=== PATIENT | female | born 1950 | race Caucasian/White ===

== ENCOUNTER 2018-12-15 01:26 | Inpatient (IN) ==
[2018-12-15] MEDS ORDERED: ATROVENT NEB INH ONE (01:39)
[2018-12-15] MEDS ORDERED: SOLU-MEDROL IV ONE (01:39)
--- NOTE | 2018-12-15 01:53 | PROVIDER DOCUMENTATION ---
This chart was entered by Valerie Lee Scribe, acting as scribe for Mayito Adam MD. HPI-Respiratory General - General Chief Complaint: Shortness of Breath Stated Complaint: sob Time Seen by Provider: 12/15/18 01:39 Source: EMS Allergies/Adverse Reactions: Patient Allergies Allergy/AdvReac Type Severity Reaction Status Date / Time azithromycin Allergy RASH Verified 12/15/18 06:18 hydromorphone HCl * Allergy HIVES Verified 12/15/18 06:18 [From Dilaudid] levofloxacin [From Levaquin] Allergy HIVES Verified 12/15/18 06:18 Home Medications: Home Medication List Medication Instructions Recorded Confirmed Last Taken Type Hydrocodone/Acetaminophen [[place] 1 tab PO Q6-8H PRN PRN 09/18/15 12/15/18 12/14/18 History 10-325 Tablet] Levothyroxine [Synthroid] 200 microgm PO DAILY 09/18/15 12/15/18 12/14/18 History Albuterol Sulfate [Ventolin] 2 puff INH Q4H PRN PRN 01/27/18 12/15/18 12/15/18 00:00 History Famotidine 40 mg PO BID 01/27/18 12/15/18 12/14/18 History Insulin Glargine,Hum.rec.anlog 0 unit SQ DIRECTED 01/27/18 12/15/18 12/14/18 History [Toujeo Solostar] Lorazepam 0.5 mg PO 4XDAY PRN 01/27/18 12/15/18 12/14/18 History Pramipexole Di-HCl [Pramipexole 0.5 mg PO TID 01/27/18 12/15/18 12/13/18 History Dihydrochloride] Aspirin 81 mg PO DAILY chewtab 01/30/18 12/15/18 12/14/18 Rx Promethazine [Phenergan] 25 mg PO Q8HR PRN #12 tab 05/28/18 12/15/18 12/13/18 Rx Buspirone [Buspar] 10 mg PO BID 12/15/18 12/15/18 12/14/18 History - History of Present Illness-Resp Nature of Presenting Problem: 68 yowf with history of chronic rectal bleeding and lower abdominal pain for past 3 weeks, and severe COPD requiring continuous home oxygen who presents by ems with worsening sob. EMS gave albuterol updraft in route with improvement. pt has no cp, cough, or fever. pt reports son just of colon cancer and wants to be admitted and have total abd workup . Quality of Pain: reports: none Severity in ED: reports: mild Onset/Duration: reports: 3 days ago Timing: reports: still present Review of Systems - Adult - REVIEW OF SYSTEMS - ADULT Constitutional: reports: no symptoms reported. denies: chills, fever Eyes: reports: no symptoms reported Ears, Nose, Mouth & Throat: reports: no symptoms reported Cardiovascular: reports: no symptoms reported. denies: chest pain Respiratory: reports: see HPI, shortness of breath. denies: cough, dyspnea on exertion, wheezing Gastrointestinal: reports: see HPI, abdominal pain (suprapubic pain), rectal bleeding (3 weeks). denies: diarrhea, nausea, vomiting Genitourinary: reports: no symptoms reported Musculoskeletal: reports: no symptoms reported Integumentary: reports: no symptoms reported Neurological: reports: no symptoms reported Psychiatric: reports: no symptoms reported Endocrine: reports: no symptoms reported Hematologic/Lymphatic: reports: no symptoms reported Allergic/Immunologic: reports: no symptoms reported All Other Systems: Reviewed and Negative Past History - Adult - PAST MEDICAL HISTORY-ADULT Review of Records: reports: Old Records Reviewed, Nursing Assessment Review, Medications Reviewed, Social history reviewed & non-contributory. Major Childhood Illnesses: reports: denies history Cardiovascular: reports: CHF, HTN Respiratory: reports: asthma, COPD, other (emphysema) Gastrointestinal: reports: cholelithiasis Obstetrical/Gynecological: reports: ovarian cysts Genitourinary: reports: denies history Musculoskeletal: reports: denies history Neurological: reports: CVA Psychiatric: reports: anxiety Endocrine/Immune: reports: Diabetes, thyroid disorder (hypo) Other Conditions: reports: other (gall stones) - PRIOR SURGERIES/PROCEDURES Surgical/Procedure History: reports: appendectomy, BTL, orthopedic (extremity) (heel spur) - IMMUNIZATION STATUS Childhood Immunizations: See Nurse Assessment Flu Vaccine: See Nurse Assessment - FAMILY HISTORY Family History: reviewed, not pertinent - SOCIAL HISTORY Smoking: other (former) Substance Use: none/never Physical Exam-General - PHYSICAL EXAM-ADULT Initial Vital Signs Reviewed: Yes - CONSTITUTIONAL General Appearance: appears well, alert, no apparent distress, obese. negative: thin, anxious, lethargic, slow to respond - EYES Eyes: PERRL/EOMI - HEAD, EARS, NOSE, MOUTH & THROAT HENMT: normocephalic/atraumatic, moist mucous membranes, normal ENT inspection - NECK Neck: non-tender, full range of motion, supple, normal inspection - RESPIRATORY Respiratory: chest non-tender, decreased breath sounds (bilat), wheezing (scattered). negative: lungs clear, normal breath sounds, crackles, rales, rhonchi, stridor - CARDIOVASCULAR Cardiovascular: normal peripheral pulses, regular rate, rhythm - GASTROINTESTINAL (ABDOMEN) Abdominal Exam: normal bowel sounds, non tender, soft, tenderness (lower abd tenderness), other (no active bleeding). negative: abnormal bowel sounds, guarding, rigid, rebound - LYMPHATIC Lymphatic: no adenopathy - MUSCULOSKELETAL Back Exam: normal inspection, no CVA tenderness, no vertebral tenderness Extremity: normal range of motion, non-tender, normal inspection Peripheral Pulses: radial (R): 2+, radial (L): 2+ - SKIN Integumentary: normal color, normal turgor, warm/dry - NEUROLOGIC Neurologic: drive in teller II-XII nml as tested, grossly normal, no motor/sensory deficits - PSYCHIATRIC Psych/Mental Status: normal mood/affect, normal thought content, normal thought process, oriented x 3 Progress - PLAN OF CARE/RESULTS Progress/Plan/Lab Results: Vital Signs - 8 hr 12/15/18 01:44 12/15/18 01:45 12/15/18 01:51 Temperature Pulse Rate 88 Respiratory Rate 16 Blood Pressure 121/100 O2 Sat by Pulse Oximetry 95 95 95 12/15/18 02:00 12/15/18 02:02 12/15/18 02:10 Temperature 98.6 F Pulse Rate 105 H Respiratory Rate 20 Blood Pressure 121/100 118/54 O2 Sat by Pulse Oximetry 95 94 L 95 12/15/18 02:21 12/15/18 02:30 12/15/18 02:32 Temperature Pulse Rate Respiratory Rate Blood Pressure 147/78 O2 Sat by Pulse Oximetry 93 L 95 95 12/15/18 02:40 12/15/18 02:53 12/15/18 03:00 Temperature Pulse Rate Respiratory Rate Blood Pressure O2 Sat by Pulse Oximetry 98 95 96 12/15/18 03:10 12/15/18 03:20 12/15/18 04:48 Temperature 97.8 F Pulse Rate 96 H Respiratory Rate 22 Blood Pressure 144/78 O2 Sat by Pulse Oximetry 96 95 92 L Laboratory Results - last 24 hr 12/15/18 12/15/18 12/15/18 02:40 03:00 03:00 WBC 10.65 RBC 4.32 Hgb 12.6 Hct 41.7 MCV 96.5 MCH 29.2 MCHC 30.2 L RDW Std Deviation 13.4 Plt Count 372 MPV 9.9 Immature Gran % (Auto) 0.3 Neut % (Auto) 70.9 Lymph % (Auto) 19.3 L Smith % (Auto) 7.8 Eos % (Auto) 1.6 Baso % (Auto) 0.1 Immature Gran # (Auto) 0.03 Neut # (Auto) 7.55 H Lymph # (Auto) 2.06 Smith # (Auto) 0.83 H Eos # (Auto) 0.17 Baso # (Auto) 0.01 PT INR PTT (Actin FS) Specimen Type ARTERIAL Sample Site R RADIAL pH 7.39 pCO2 62 H* pO2 79 HCO3 32.8 H Base Excess 10.2 H Oxyhemoglobin 95.1 ABG O2 Sat (Calculated) 17.2 ABG O2 Saturation 97.9 ABG Carboxyhemoglobin 1.90 ABG Methemoglobin 0.9 Abdulaziz Test YES A-a O2 Difference 72.0 Total Hemoglobin 12.8 Lactate 1.00 Liter Flow 3.0 Blood Gas Modality CANNULA FiO2 % 32.0 Sodium 140 Potassium 4.1 Chloride 95 L Carbon Dioxide 34 Anion Gap 11 BUN 17 Creatinine 0.7 Estimated GFR/1.73 m2 > 60 BUN/Creatinine Ratio 24 Glucose 354 H Calculated Osmolality 295 Calcium 9.3 Total Bilirubin < 0.15 L AST 13 ALT 25 Alkaline Phosphatase 146 H Troponin T Hdz-L-Wftyqyofmei Pept Total Protein 7.2 Albumin 3.9 Globulin 3.3 Albumin/Globulin Ratio 1.2 Lipase Plasma Lactate Urine Source Urine Color Urine Turbidity Urine pH Ur Specific [place] Urine Protein Ur Glucose (Stick) Ur Ketones (Stick) Urine Blood Urine Nitrite Urine Bilirubin Urobilinogen Dipstick Urine Leukocytes Urine WBC (Auto) Urine RBC (Auto) U Epithel Cells (Auto) Urine Bacteria (Auto) 12/15/18 12/15/1819 03:00 03:00 03:00 WBC RBC Hgb Hct MCV MCH MCHC RDW Std Deviation Plt Count MPV Immature Gran % (Auto) Neut % (Auto) Lymph % (Auto) Smith % (Auto) Eos % (Auto) Baso % (Auto) Immature Gran # (Auto) Neut # (Auto) Lymph # (Auto) Smith # (Auto) Eos # (Auto) Baso # (Auto) PT INR PTT (Actin FS) Specimen Type Sample Site pH pCO2 pO2 HCO3 Base Excess Oxyhemoglobin ABG O2 Sat (Calculated) ABG O2 Saturation ABG Carboxyhemoglobin ABG Methemoglobin Abdulaziz Test A-a O2 Difference Total Hemoglobin Lactate Liter Flow Blood Gas Modality FiO2 % Sodium Potassium Chloride Carbon Dioxide Anion Gap BUN Creatinine Estimated GFR/1.73 m2 BUN/Creatinine Ratio Glucose Calculated Osmolality Calcium Total Bilirubin AST ALT Alkaline Phosphatase Troponin T < 0.010 Bom-S-Epanjcaxsdu Pept 42 Total Protein Albumin Globulin Albumin/Globulin Ratio Lipase Plasma Lactate 1.2 Urine Source Urine Color Urine Turbidity Urine pH Ur Specific [place] Urine Protein Ur Glucose (Stick) Ur Ketones (Stick) Urine Blood Urine Nitrite Urine Bilirubin Urobilinogen Dipstick Urine Leukocytes Urine WBC (Auto) Urine RBC (Auto) U Epithel Cells (Auto) Urine Bacteria (Auto) 12/15/18 12/15/18 12/15/18 03:00 03:00 04:35 WBC RBC Hgb Hct MCV MCH MCHC RDW Std Deviation Plt Count MPV Immature Gran % (Auto) Neut % (Auto) Lymph % (Auto) Smith % (Auto) Eos % (Auto) Baso % (Auto) Immature Gran # (Auto) Neut # (Auto) Lymph # (Auto) Smith # (Auto) Eos # (Auto) Baso # (Auto) PT 12.6 INR 0.88 PTT (Actin FS) 24.1 Specimen Type Sample Site pH pCO2 pO2 HCO3 Base Excess Oxyhemoglobin ABG O2 Sat (Calculated) ABG O2 Saturation ABG Carboxyhemoglobin ABG Methemoglobin Abdulaziz Test A-a O2 Difference Total Hemoglobin Lactate Liter Flow Blood Gas Modality FiO2 % Sodium Potassium Chloride Carbon Dioxide Anion Gap BUN Creatinine Estimated GFR/1.73 m2 BUN/Creatinine Ratio Glucose Calculated Osmolality Calcium Total Bilirubin AST ALT Alkaline Phosphatase Troponin T Nmy-A-Rjmeakafwdb Pept Total Protein Albumin Globulin Albumin/Globulin Ratio Lipase 68 H Plasma Lactate Urine Source CLEAN CATCH Urine Color YELLOW Urine Turbidity CLEAR Urine pH 7.0 Ur Specific [place] 1.023 Urine Protein TRACE A Ur Glucose (Stick) >1000 A Ur Ketones (Stick) NEGATIVE Urine Blood NEGATIVE Urine Nitrite NEGATIVE Urine Bilirubin NEGATIVE Urobilinogen Dipstick NORMAL Urine Leukocytes NEGATIVE Urine WBC (Auto) <10 Urine RBC (Auto) <10 U Epithel Cells (Auto) <10 Urine Bacteria (Auto) NEGATIVE Orders Category Date Time Status Saline Loc NOW Care 12/15/18 01:39 Active CHEST-PORTABLE [RAD] Stat Exams 12/15/18 01:[address] ABD/PELVIS W/IV CONT ONLY [CT] Stat Exams 12/15/18 04:38 Taken ABG [RESP] Routine Lab 12/15/18 02:40 Completed BLOOD CULTURE [BLDCUL] Stat Lab 12/15/18 03:10 Results CBC WITH DIFF [HEME] Stat Lab 12/15/18 03:00 Completed COMPREHENSIVE METABOLIC PANEL [CHEM] Stat Lab 12/15/18 03:00 Completed LACTATE, PLASMA [CHEM] Stat Lab 12/15/18 03:00 Completed LIPASE [CHEM] Stat Lab 12/15/18 03:00 Completed PRO B-NATRIURETIC PEPTIDE Stat Lab 12/15/18 03:00 Completed PT [PROTIME WITH INR] [COAG] Stat Lab 12/15/18 03:00 Completed PTT [COAG] Stat Lab 12/15/18 03:00 Completed TROPONIN T Stat Lab 12/15/18 03:00 Completed URINALYSIS W/POSS RFLX CULT [URINALYSIS] Stat Lab 12/15/18 04:35 Completed Ipratropium [place] Neb [Atrovent Neb] Med 12/15/18 01:39 Discontinued 0.5 mg INH NOW ONE Methylprednisolone Sod Succ [Solu-Medrol] Med 12/15/18 01:39 Discontinued 125 mg IV NOW ONE Ondansetron [Zofran] Med 12/15/18 04:38 Discontinued 4 mg IV NOW ONE Aerosol Treatments Routine Oth 12/15/18 01:40 Active Aerosol Treatments Stat Oth 12/15/18 01:40 Active Oxygen Device Stat Oth 12/15/18 01:41 Active Pulse Oximetry Stat Oth 12/15/18 01:39 Active Result Diagrams: 12/15/18 03:00 12/15/18 03:00 - REASSESSMENT Reassessment #1 Time Reassessed: 05:45 Status: unchanged Reassessment Comment: continues to wheeze Reassessment #2 Time Reassessed: 06:30 Status: unchanged Reassessment Comment: continues to wheeze - CONSULTS/PCP/HOSPITALIST Notification #1 *Consult/PCP/Hospitalist*: Dr. Swartz, hospitalist Time Discussed: 06:35 Consult Disposition: Admit Departure - Departure Date of Disposition Decision: 12/15/18 Time of Disposition Decision: 06:38 DIAGNOSIS: COPD exacerbation, Rectal bleeding Abdominal pain Qualifiers: Abdominal location: lower abdomen, unspecified Qualified Code(s): R10.30 - Lower abdominal pain, unspecified Disposition: ADMITTED INPATIENT 09 Certified Medical Emergency: Emergent Condition: Stable Referrals and Follow-Ups: Kane Pierre MD [Primary Care Provider] - - Critical Care Note This patient required my direct & personal management of CC.: No Attestation - Physician/ MARGA Attestation Patient care was provided by Advanced Practice Provider:: No The physician spent face to face time with patient:: Yes Advanced Practice Provider documentation review:: Supervising physician onsite and consulted in the evaluation and care of this patient. The physician did have a face to face encounter with the patient. This chart was documented by the indicated scribe, (Valerie Lee, Pham) and accurately reflects the services I performed and decisions made by me, Mayito Adam MD, as attested by the provider's signature.
[2018-12-15 02:58] LABS: ALLEN TEST YES; BE 10.2 mmoll (-3.0-3.0); BLOOD TYPE ARTERIAL; HCO3-(ACT) 32.8 mmoll (20.0-26.0); METHB 0.9 % (0.0-1.5); O2(CT) 17.2 mL/dL (15.0-23.0); O2HB 95.1 % (95.0-99.0); PO2(98.6) 79 mmHg (60-100); SAMPLE BLOOD; SAO2 97.9 % (95.0-100.0); THB 12.8 g/dL (11.5-17.4); pH(98.6) 7.39 (7.35-7.45)
[2018-12-15 02:59] LABS: MODALITY CANNULA
[2018-12-15 03:00] LABS: PCO2(98.6) 62 mmHg (35-45)
[2018-12-15 03:44] LABS: BASO# 0.01 X1000 (0.0-0.2); BASO% 0.1 % (0.0-0.8); EOS# 0.17 X1000 (0.0-0.7); EOS% 1.6 % (0.0-10.0); HEMATOCRIT 41.7 % (37.0-47.0); HEMOGLOBIN 12.6 g/dL (12.0-16.0); IMM GRAN# 0.03 X1000 (0.0-0.04); IMM GRAN% 0.3 % (0.0-0.5); LYMPH# 2.06 X1000 (1.2-3.4); LYMPH% 19.3 % (20.5-51.1); MCH 29.2 PG (27-31); MCHC 30.2 g/dL (33-37); MCV 96.5 FL (81-99); MONO# 0.83 X1000 (0.11-0.59); MONO% 7.8 % (1.7-9.3); MPV 9.9 FL (7.4-10.4); NEUT# 7.55 X1000 (1.4-6.5); NEUT% 70.9 % (42.2-75.2); PLT 372 X1000 (130-400); RBC 4.32 XMIL (4.2-5.4); RDW 13.4 % (11.5-14.5); WBC 10.65 X1000 (4.8-10.8)
[2018-12-15 03:53] LABS: INR 0.88; PROTIME 12.6 Seconds (11.0-16.0); PTT 24.1 Seconds (22.3-41.8)
[2018-12-15 04:30] LABS: AGAP 11; ALB/GLOB RATIO 1.2; ALBUMIN 3.9 g/dL (3.5-5.0); ALKALINE PHOSPHATASE 146 U/L (32-104); BUN 17 mg/dL (8-22); CALCIUM 9.3 mg/dL (8.8-10.2); CHLORIDE 95 mmol/L (98-107); COSMO 295; CREATININE 0.7 mg/dL (0.5-0.9); ESTIMATED GFR > 60; GLUCOSE 354 mg/dL (70-104); GOT 13 U/L (10-30); GPT 25 U/L (10-36); POTASSIUM 4.1 mmol/L (3.5-5.1); SODIUM 140 mmol/L (136-145); TCO2 34 mmol/L (25-35); TOTAL BILIRUBIN < 0.15 mg/dL (0.20-1.00); TOTAL PROTEIN 7.2 g/dL (6.3-8.3)
[2018-12-15] MEDS ORDERED: ZOFRAN IV ONE (04:38)
[2018-12-15 04:50] LABS: URINE SOURCE CLEAN CATCH
[2018-12-15 04:54] LABS: BILIRUBIN URINE NEGATIVE (NEGATIVE); BLOOD URINE NEGATIVE (NEGATIVE); COLOR YELLOW; GLUCOSE URINE >1000 mg/dL (NEGATIVE); KETONE URINE NEGATIVE (NEGATIVE); LEUKOCYTES URINE NEGATIVE (NEGATIVE); NITRITE URINE NEGATIVE (NEGATIVE); PROTEIN URINE TRACE mg/dL (NEGATIVE); SP GRAVITY URINE 1.023; TURBIDITY URINE CLEAR (CLEAR); UROBILINOGEN URINE NORMAL (NORMAL)
[2018-12-15 04:55] LABS: UR EPITHELIAL CELLS <10 /HPF (<10); URINE BACTERIA NEGATIVE /HPF; URINE RBC <10 /HPF (<10); URINE WBC <10 /HPF (<10)
--- NOTE | 2018-12-15 07:41 | Diag Imaging Result Doc PS360 ---
EXAM: CHEST-PORTABLE 12/15/2018 HISTORY: sob TECHNIQUE: AP portable at 0203 COMMENT: There is a platelike opacity in the lingula which was not present on 01/27/2018. There is a smaller platelike opacity in the right costophrenic angle region. IMPRESSION: Bilateral platelike atelectasis. Electronically signed by Ross Thomas 12/15/2018 7:39 AM
[2018-12-15] MEDS ORDERED: KLONOPIN PO PRN (07:42)
[2018-12-15] MEDS ORDERED: DUONEB (A & A) INH PRN (07:42)
--- NOTE | 2018-12-15 08:22 | HISTORY AND PHYSICAL ---
CHIEF COMPLAINT: Shortness of breath and then just lower abdominal cramping. She is an obese COPD patient who is here for abdominal pain in her lower quadrants. She has got a history of I think diverticulitis, may be pancreatitis. She reports these things, but she has a very large pannus with swelling in her pannus, but not sure how much she has available there. Reportedly, she has also cholelithiasis but her main issue is her low oxygen, which has progressed a bit. She is usually on 2 to 3 L. She is on 4 L now with shortness of breath. Workup in the ER consistent with COPD exacerbation, possibly left lower lobe pneumonia, or left pleural effusion, but in any case, patient is stable and does not look like she has got an effusion or pneumonia per se, at least at the base of the lungs. In any case, patient is stable and admitted for COPD exacerbation. She also reports rectal bleeding, hematochezia. She does have a history of hemorrhoids and lower abdominal cramping. She is diabetic as well. PAST MEDICAL HISTORY: 1. COPD. 2. Morbid obesity. 3. Type 2 diabetes insulin dependent. 4. Hypothyroidism. 5. Chronic anxiety. PAST SURGICAL HISTORY: She had appendectomy, tubal ligation, heel spur surgery. She has got cholelithiasis but is not amenable to surgery because of her weight and her COPD. SOCIAL HISTORY: She does not smoke currently. She at least has a 25 pack year history of smoking. No alcohol. ALLERGIES: To azithromycin, hydromorphone, and Levaquin. FAMILY HISTORY: Son had colorectal cancer and is . REVIEW OF SYSTEMS: No weight gain. Cardiovascular: No chest pain. Pulmonary: As described. Gastrointestinal: As described. Genitourinary: No dysuria. Neurological: She describes burning peripheral neuropathy in hands and feet. PHYSICAL EXAMINATION: VITAL SIGNS: Blood pressure is 144/78, heart rate of 96, respiratory rate of 22, temperature 97.8 degrees, 92% on 4 L. GENERAL: An obese female in no acute distress. HEENT: Head exam was normocephalic atraumatic. Eye exam: Pupils equal, round, reactive to light. Extraocular movements were intact. Ears, nose, and throat exam: She had moist mucous membranes. NECK: Exam was supple. CARDIOVASCULAR: Regular rate and rhythm. PULMONARY: Bilateral breath sounds. Clear to auscultation. She does not have significant wheezing, no interstitial edema. GASTROINTESTINAL: Soft, nontender, nondistended. Bowel sounds are positive. She does have enlarged, edematous pannus at the bottom. I did not appreciate any cellulitic changes. EXTREMITIES: No clubbing or cyanosis. LYMPHATIC: No peripheral edema. NEUROLOGICAL: Exam was nonfocal. Cranial nerves 2-12. EXTREMITIES: She does have 1 to 2+ pitting edema. MUSCULOSKELETAL: Exam was 4 to 5 in all 4 extremities. LABORATORY DATA: White count 10, hemoglobin and hematocrit 12 and 41, platelets 372,000. INR 0.88. PH 7.39, pCO2 62, PaO2 79. Blood sugar 354. PROBLEM LIST: 1. Chronic obstructive pulmonary disease exacerbation, acute COPD exacerbation. We will continue oxygen. Follow up on chest x-ray. Her CT does not show anything in the lower lobes but we will cover her with Rocephin and follow closely. Continue breathing treatments, steroids. 2. Rectal bleeding. Unclear at this time, this sounds like a chronic issue, but we will get a GI input, Hemoccult her stools. It could be something as simple as hemorrhoid issues. 3. Acute hypoxic respiratory failure. She persists in having low CO2. I am going to move her to the step-down just for closer observation and we will get a Pulmonary opinion. 4. Type 2 diabetes. We will continue to get her medications. It is unclear how much insulin she actually takes and says up to 300 units, which seems like a very large amount, but we will continue to follow closely. Check A1c. Continue sliding scale and follow closely. cc: MD Kane Dawson MD
[2018-12-15] MEDS: DUONEB (A & A) INH SCH ×5 (08:54→23:10)
--- NOTE | 2018-12-15 09:06 | Diag Imaging Result Doc PS360 ---
EXAM: CT ABD/PELVIS W/IV CONT ONLY 12/15/2018 HISTORY: abdominal pain TECHNIQUE: This exam was performed using automated exposure control, adjustment of mA or kV according to patient size, and/or use of iterative reconstruction technique. COMMENT: The current examination is compared with the previous study of 01/27/2018. There is atelectasis present in the lingula which is worse than on the previous study. There are also linear opacities in the right lower lobe and medial right middle lobe consistent with atelectasis. There is no evidence of abdominal aortic aneurysm. The mesenteric and renal arteries appear to be patent. The spleen is not enlarged. There is enlargement of the left adrenal gland which compared to the previous examination has not changed significantly. The pancreas is unremarkable in appearance. There are no apparent gallstones in the liver is stable in appearance. There is some stool throughout the colon. The small bowel is not distended. There is no evidence of significant adenopathy. Pelvis: The appendix is surgically absent. There is no evidence of significant free fluid in the pelvis. There is a fat-containing umbilical hernia. The urinary bladder is not distended. There is no evidence of mass or significant adenopathy. There is vacuum joint phenomenon in both sacroiliac joints as well as vacuum phenomenon and several of the disc spaces and facet joints in the lumbar spine. There is no evidence of acute bony abnormality. IMPRESSION: Bibasilar atelectasis. Mild constipation. Left adrenal adenoma. Electronically signed by Ross Thomas 12/15/2018 9:04 AM
[2018-12-15 10:08] LABS: BASO# 0.01 X1000 (0.0-0.2); BASO% 0.1 % (0.0-0.8); EOS# 0.01 X1000 (0.0-0.7); EOS% 0.1 % (0.0-10.0); HEMATOCRIT 42.9 % (37.0-47.0); IMM GRAN# 0.02 X1000 (0.0-0.04); IMM GRAN% 0.2 % (0.0-0.5); LYMPH# 0.94 X1000 (1.2-3.4); LYMPH% 7.7 % (20.5-51.1); MCH 29.2 PG (27-31); MCHC 30.3 g/dL (33-37); MCV 96.4 FL (81-99); MONO# 0.06 X1000 (0.11-0.59); MONO% 0.5 % (1.7-9.3); MPV 10.1 FL (7.4-10.4); NEUT# 11.17 X1000 (1.4-6.5); NEUT% 91.4 % (42.2-75.2); PLT 366 X1000 (130-400); RBC 4.45 XMIL (4.2-5.4); RDW 13.5 % (11.5-14.5); WBC 12.21 X1000 (4.8-10.8)
[2018-12-15 10:23] LABS: LYMPHS 3 % (21-51); MONO 2 % (1-9); SEGS 95 % (42-75); STOMATOCYTES 1+
[2018-12-15] MEDS: MIRAPEX PO SCH ×3 (10:34→18:25)
[2018-12-15] MEDS: ROCEPHIN 1 GM in NS 50 ML IV SCH (10:34)
[2018-12-15] MEDS: BUSPAR PO SCH ×2 (10:35→22:19)
[2018-12-15] MEDS: SOLU-MEDROL IV SCH ×2 (10:35→18:25)
[2018-12-15] MEDS: PROTONIX IV SCH ×2 (10:36→22:19)
[2018-12-15] MEDS: SYNTHROID PO SCH (10:36)
[2018-12-15 10:39] LABS: AGAP 13; ALB/GLOB RATIO 1.1; ALBUMIN 3.9 g/dL (3.5-5.0); ALKALINE PHOSPHATASE 158 U/L (32-104); BUN 17 mg/dL (8-22); CHLORIDE 91 mmol/L (98-107); COSMO 300; CREATININE 0.6 mg/dL (0.5-0.9); ESTIMATED GFR > 60; GOT 15 U/L (10-30); GPT 27 U/L (10-36); POTASSIUM 5.2 mmol/L (3.5-5.1); SODIUM 133 mmol/L (136-145); TCO2 29 mmol/L (25-35); TOTAL BILIRUBIN 0.17 mg/dL (0.20-1.00); TOTAL PROTEIN 7.4 g/dL (6.3-8.3)
[2018-12-15 10:46] LABS: GLUCOSE 698 mg/dL (70-104)
[2018-12-15] MEDS ORDERED: HUMULIN R SUBQ SCH (11:00)
[2018-12-15] MEDS ORDERED: LEVEMIR SUBQ ONE (11:02)
[2018-12-15] MEDS: ATIVAN PO PRN (14:59)
[2018-12-15] MEDS: MIRALAX PO SCH ×2 (14:59→22:19)
[2018-12-15] MEDS: NORCO-10 PO PRN ×2 (14:59→22:27)
[2018-12-15] MEDS: HUMULIN R SUBQ SCH ×2 (18:25→22:20)
--- NOTE | 2018-12-15 21:55 | GASTROENTEROLOGY CONSULTATION ---
DATE: 12/15/2018 ATTENDING PHYSICIAN: Dr. Swartz. PRIMARY CARE DOCTOR: Dr. Pierre. REASON FOR CONSULTATION: Rectal bleeding. HISTORY OF PRESENT ILLNESS: Ms. Wolff is a 68-year-old female who was admitted on 12/15/2018 for shortness of breath, lower abdominal cramping, and intermittent rectal bleeding for the last 3 weeks. The patient recently buried her son, who of colon cancer in his mid 40s. She has a history of chronic smoking. She quit 5 years ago. She has been on home oxygen about 2-3 L/minute. She was admitted for COPD exacerbation and left lower lobe pneumonia. She also complained of lower abdominal cramping, constipation, and rectal bleeding. She has never had a colonoscopy done in the past. She has seen Dr. Burr in [place] for possible EGD and colonoscopy, but because of the high risk of the procedure, they have deferred it until now. The patient denies any vomiting blood. She denies any history of previous ulcers. She denies any previous history of hemorrhoids. Since admission, the patient has not had a bowel movement. She does have a history of intermittent constipation. PAST MEDICAL HISTORY: COPD on home oxygen, morbid obesity, type 2 diabetes, insulin dependent, hypothyroidism, chronic anxiety, and obesity. PAST SURGICAL HISTORY: Appendectomy, tubal ligation, heel spur surgery, cholelithiasis. SOCIAL HISTORY: She quit smoking 5 years ago. She has more than a [id number] history of smoking. No history of alcohol or illicit drug abuse. ALLERGIES: Azithromycin, hydromorphone Levaquin. FAMILY HISTORY: Son had colon cancer and from colon cancer at age 45. REVIEW OF SYSTEMS: Denies any fevers, rigors, or chills. Denies any chest pain. Does have some shortness which has worsened. She denies any vomiting blood or coffee grounds. She does complain of rectal bleeding for the last 3 weeks. She also complains of constipation. She does complain of abdominal pain in the lower abdomen which she attributes to constipation. She does have a history of arthritis. Denies any neurologic complaints. She is currently on a heart healthy diet. MEDICATIONS IN THE HOSPITAL: Levemir, hydrocortisone suppository at bedtime, albuterol/ipratropium, BuSpar, Klonopin, hydrocodone/acetaminophen, insulin sliding scale, Synthroid, Ativan, Solu-Medrol 60 mg IV every 8 hours, Protonix 40 mg IV b.i.d., MiraLAX 17 grams p.o. b.i.d., pramipexole 0.5 mg p.o. t.i.d., ceftriaxone 1 gram IV once daily. PHYSICAL EXAMINATION: Vital Signs: Temperature of 98.2 degrees, pulse rate 113, respiratory rate 16, blood pressure 157/86, saturating 95% on nasal cannula at 3 L/minutes. Body weight of 317 pounds, BMI 52.8 kg/m2. General: Morbidly obese. Sitting in bed, in no acute distress. HEENT: No pallor. No icterus. Nasal cannula in place. Neck: Supple. Abdomen: Morbidly obese. Soft, nontender. No guarding or rebound. Extremities: Bilateral mild lower extremity edema noted. Neurologic: She is awake, alert, oriented. LABS: Hemoglobin and hematocrit are 13 and 42.9, white count of 12.1, platelet count of 360, MCV 96.4, INR 0.88, PT 12.6, PT 24.1. ABG showing pH of 7.39, pCO2 of 62, PO2 of 79. This is on a on FiO2 at 30%. Sodium 133, potassium 5.2, chloride 91, bicarb 29, AG 13, BUN 17, creatinine 0.6, glucose of 698. Calcium is 9. Total bilirubin is 0.17, AST 15, ALT 27, alkaline phosphatase 158. Total protein is 7.4, albumin 3.9, lipase 68. Lactate is 1.2. Urinalysis shows trace protein, positive glucose. Blood cultures x2 were drawn. They are currently pending. CT of the abdomen and pelvis was done today which showed enlargement of the left adrenal gland, which compared to the previous study has not changed significantly. The pancreas is unremarkable in appearance. No apparent gallstones. The liver is stable in appearance. There is some stool throughout the colon. The appendix is surgically absent. Fat-containing umbilical hernia. Bibasilar atelectasis and left adrenal adenoma. IMPRESSION AND PLAN: 1. Rectal bleeding. This could be secondary to straining which could have caused hemorrhoids or anal fissure. Will start her on MiraLAX twice daily. Will also use hydrocortisone suppository at bedtime and evaluate response. 2. Chronic obstructive pulmonary disease on home oxygen and currently in chronic obstructive pulmonary disease exacerbation. She will continue on treatment with albuterol/ipratropium nebulizer. 3. Chronic arthritis. She is on hydrocodone/acetaminophen. 4. Uncontrolled diabetes. This needs to be managed per the primary care team. She is on insulin. 5. Gastrointestinal prophylaxis with proton pump inhibitors. 6. Left adrenal adenoma. Aware. 7. I discussed the options of doing colonoscopy with the patient. The risks, benefits, indications, and alternatives were discussed with the patient, and all questions were answered. The patient is going to think about it and let us know. The patient is a higher-risk candidate for any kind of procedure including colonoscopy because of underlying chronic obstructive pulmonary disease, other medical comorbidities. The above plan was discussed with the patient and all questions answered. Please call us with questions. cc: MD Kane Jaquez MD Manish Arora, MD [facility]
[2018-12-15] MEDS: LEVEMIR SUBQ SCH (22:19)
[2018-12-15] MEDS: SODIUM CHLORIDE 0.9% INJ SCH (22:19)
[2018-12-15] MEDS: ANUSOL-HC SUPP PR SCH (22:20)
[2018-12-15] MEDS ORDERED: INSULIN PEN NEEDLES ONE (22:22)
--- NOTE | 2018-12-16 00:04 | CONSULTATION ---
DATE OF CONSULTATION: 12/15/2018 CONSULTING PHYSICIAN: Dr. Anne Gutiérrez. REQUESTING PROVIDER: Dr. Zachariah Swartz. REASON FOR CONSULTATION: Respiratory failure. HISTORY OF PRESENT ILLNESS: This is a 68-year-old female with a medical history of COPD, morbid obesity with obstructive sleep apnea, history of heavy tobacco use, congestive heart failure, hypothyroidism, anxiety, depression, hypertension, diabetes mellitus type 2, cholelithiasis, and Meniere's disease. She presented to the ER early this morning with shortness of breath and lower abdominal cramping. Initial work up in the ER revealed COPD exacerbation, possible left lower lobe pneumonia or left pleural effusion. She has been admitted to the medical floor for further evaluation and management. At the time of my examination, patient is sitting at the bedside with no acute distress noted. She is currently on nasal cannula at 3 L. She reports worsening shortness of breath with ongoing rectal bleeding and bilateral lower extremity pitting edema with left side worse than right side for about 3 weeks. She reports she gained 10 pounds in 3 weeks. She also reports lower abdominal pain and she has been passing blot clots in last couple days. She has no chest pain, cough, fever, or palpitations. PAST MEDICAL AND SURGICAL HISTORY: 1. Chronic obstructive pulmonary disease, on continuous oxygen 3 to 3.5 L/min at home for about 6 years. She takes Breo and albuterol at home. 2. Morbid obesity with obstructive sleep apnea; current BMI 52.8 3. History of heavy tobacco use. Over [id number] smoking history. 4. Congestive heart failure 5. Hypothyroidism. 6. Anxiety. 7. Depression. 8. Hypertension. 9. Diabetes mellitus type 2, uncontrolled 10. Cholelithiasis, which she has been told that was not surgically amenable because of her weight and COPD. 11. Meniere's disease. 12. Appendectomy. 13. Hemorrhoidectomy. 14. Back surgery in 1994. 15. Left ovary cyst removal in 1981. SOCIAL HISTORY: She was a former smoker, she quit smoking 5 years ago. She used to smoke maximally up to 5 pack per day, but most of times stayed at 3 pack per day since she was 28-year- old. She has no history of alcohol or illicit drug use. FAMILY HISTORY: Patient's son had colorectal cancer and 4 years ago. Father had Alzheimer's disease. Mother had heart disease. ALLERGIES: Azithromycin, hydromorphone, levofloxacin. REVIEW OF SYSTEMS: A 10-point review of systems was conducted and the pertinent was listed within the HPI, otherwise noncontributory. PHYSICAL EXAMINATION: Vital Signs: Temperature 97.8 degrees, blood pressure 144/78, pulse 96, respiratory rate 22, oxygen saturation 92% on nasal cannula at 3 L. General: Depressed, morbidly obese, in no acute distress, but keeps moving her hands when she is talking. HEENT: Atraumatic. Trachea midline. Mucosa pink and slightly dry. Cardiovascular: Regular rate and rhythm. Respiratory: Lung expansion equal bilaterally. Auscultation revealed diminished breathing sounds by laterally, otherwise clear. Gastrointestinal: Bowel sounds normoactive in all 4 quadrants. Soft, nontender, and obese. Extremities: Bilateral lower extremity 1+ pitting edema. Neurologic: Alert and oriented x3. Speech fluent. Follows commands. IMAGING DATA: Chest x-ray revealed bibasilar atelectasis. LAB DATA: White blood cells 12.21, hemoglobin 14.0, hematocrit 42.9, platelets 366,000. Sodium 133, potassium 5.2, chloride 91, carbon dioxide 29, BUN 17, creatinine 0.6. Glucose 698. ABG, pH 7.39, pCO2 of 62, PO2 of 79, HCO3 of 32.8, base excess 10.2, and oxyhemoglobin 95.1. ASSESSMENT: This is a 68-year-old female with a medical history of COPD, morbid obesity with obstructive sleep apnea, history of heavy tobacco use, congestive heart failure, hypothyroidism, anxiety, depression, hypertension, diabetes mellitus type 2, cholelithiasis, and Meniere's disease.. She has been admitted to the medical floor with acute on chornic hypoxemic hypercapnic respiratory failure, chronic obstructive pulmonary disease exacerbation, possible left lower lung pneumonia, rectal rectal bleeding. 1. Chronic obstructive pulmonary disease exacerbation. 2. Possible left lower lobe pneumonia. 3. Rectal bleeding. 4. Acute on chronic hypoxemic hypercapnic respiratory failure. PLAN: 1. Continue supplemental oxygen as needed. 2. Continue antibiotics, steroid, and bronchodilators. 3. Follow up with chest x-ray, ABG, CBC and BMP. 4. Start BiPAP at bedtime and as needed. 5. Dr. Wilcox is on board. 6. Continue GI and DVT prophylaxis. 7. Further recommendations pending hospital course. Thank you for the courtesy of this consult. Dictated by PADMINI Guzman for Anne Gutiérrez MD cc: PADMINI Guzman MD [facility]
[2018-12-16] MEDS: HUMULIN R SUBQ SCH ×9 (00:40→20:50)
[2018-12-16] MEDS: SOLU-MEDROL IV SCH (04:42)
[2018-12-16 05:04] LABS: ALLEN TEST YES; BE 6.4 mmoll (-3.0-3.0); BLOOD TYPE ARTERIAL; HCO3-(ACT) 29.8 mmoll (20.0-26.0); METHB 1.5 % (0.0-1.5); O2(CT) 15.9 mL/dL (15.0-23.0); O2HB 91.9 % (95.0-99.0); PO2(98.6) 67 mmHg (60-100); SAMPLE BLOOD; SAO2 94.8 % (95.0-100.0); THB 12.3 g/dL (11.5-17.4); pH(98.6) 7.33 (7.35-7.45)
[2018-12-16 05:05] LABS: MODALITY CANNULA; PCO2(98.6) 65 mmHg (35-45)
[2018-12-16] MEDS: NORCO-10 PO PRN ×3 (06:14→23:37)
[2018-12-16 06:55] LABS: HEMATOCRIT 38.5 % (37.0-47.0); HEMOGLOBIN 11.7 g/dL (12.0-16.0); IMM GRAN# 0.02 X1000 (0.0-0.04); IMM GRAN% 0.2 % (0.0-0.5); LYMPH# 0.83 X1000 (1.2-3.4); LYMPH% 8.7 % (20.5-51.1); MCH 29.3 PG (27-31); MCHC 30.4 g/dL (33-37); MCV 96.3 FL (81-99); MONO# 0.47 X1000 (0.11-0.59); MONO% 4.9 % (1.7-9.3); MPV 9.9 FL (7.4-10.4); NEUT# 8.25 X1000 (1.4-6.5); NEUT% 86.2 % (42.2-75.2); PLT 354 X1000 (130-400); RDW 13.4 % (11.5-14.5); WBC 9.57 X1000 (4.8-10.8)
[2018-12-16 07:30] LABS: AGAP 13; BUN 19 mg/dL (8-22); CALCIUM 8.8 mg/dL (8.8-10.2); CHLORIDE 94 mmol/L (98-107); COSMO 299; CREATININE 0.7 mg/dL (0.5-0.9); ESTIMATED GFR > 60; POTASSIUM 4.7 mmol/L (3.5-5.1); SODIUM 137 mmol/L (136-145); TCO2 30 mmol/L (25-35)
[2018-12-16 07:33] LABS: GLUCOSE 506 mg/dL (70-104)
[2018-12-16] MEDS: DUONEB (A & A) INH SCH ×5 (08:08→23:18)
[2018-12-16] MEDS: LEVEMIR SUBQ SCH ×2 (08:16→20:51)
[2018-12-16] MEDS: SYNTHROID PO SCH (10:50)
[2018-12-16] MEDS: MIRAPEX PO SCH ×3 (10:51→18:45)
[2018-12-16] MEDS: MIRALAX PO SCH ×2 (10:51→20:51)
[2018-12-16] MEDS: BUSPAR PO SCH ×2 (10:51→20:51)
[2018-12-16] MEDS: PROTONIX IV SCH ×3 (10:52→23:38)
[2018-12-16] MEDS: ROCEPHIN 1 GM in NS 50 ML IV SCH (10:53)
[2018-12-16] MEDS ORDERED: GOLYTELY PO ONE (14:10)
[2018-12-16] MEDS: LASIX PO SCH (16:19)
[2018-12-16] MEDS: ATIVAN PO PRN (16:19)
--- NOTE | 2018-12-16 17:15 | GASTROENTEROLOGY PROGRESS NOTE ---
DATE: 12/16/2018 SUBJECTIVE: She is resting in bed. She is feeling the same. She feels tired. She denies any active rectal bleeding. She has considered the pros and cons and risks/benefits of doing a colonoscopy, and she has agreed to proceed with the procedure. We will schedule for tomorrow. OBJECTIVE: Vital signs: Temperature 98.3 degrees, pulse rate of 101, respiratory rate 18, blood pressure 126/67, saturating 92% on nasal cannula at 2 L. Weight: Body weight of 317 pounds, BMI 52.8 kg/m2. General Appearance: The patient is morbidly obese. Lying in bed, in no acute distress. HEENT: No pallor. No icterus. Nasal cannula in place. Neck: Supple. Abdomen: Morbidly obese. Soft, nondistended. No guarding. Extremities: No cyanosis, clubbing. Neurologic: She is alert, awake, oriented x3. DIAGNOSTIC STUDIES: Hemoglobin is 11.7, hematocrit 38.5, white count of 9.5, platelet count of 354,000. ABG showing pH 7.33, pCO2 of 65, PO2 of 67; this is on FiO2 at 32%. Sodium 137, potassium 4.7, chloride 94, bicarbonate 30, anion gap 13, BUN of 19, creatinine 0.7, glucose of 506, calcium is 8.8. Blood culture x2 have been drawn from yesterday, currently pending. IMPRESSION: 1. Rectal bleeding. 2. Family history of colon cancer in her son. 3. Chronic obstructive pulmonary disease (COPD). On home oxygen 2 to 3 L. 4. Chronic arthritis. 5. Uncontrolled diabetes. 6. Gastrointestinal (GI) prophylaxis with PPIs. 7. Left adrenal adenoma. Aware. PLAN: We will schedule for colonoscopy tomorrow. The risks, benefits, indications, and alternatives of the procedure were discussed with the patient, and all questions were answered. The patient is a high risk because of multiple medical comorbid conditions, including morbid obesity and COPD on home oxygen. The patient acknowledged understanding and agreed to proceed with the above. We will schedule for colonoscopy tomorrow. Further recommendations pending hospital course. The above plans discussed with the patient, and all questions were answered. Please call us with any further questions. cc: MD Zachariah Momin MD Dr. Gillespie
--- NOTE | 2018-12-16 19:04 | PROGRESS NOTE ---
DATE: 12/16/2018 SUBJECTIVE: The patient is resting comfortably in bed. She does complain of shortness of breath and pain in her leg. OBJECTIVE: Vital Signs: Temperature 98.3 degrees, blood pressure 126/67, heart rate 101, respirations 18, O2 saturations 96% on 2 L nasal cannula. General: This is a morbidly obese female lying in bed in no acute distress. Heart: S1, S2 normal. Tachycardic. Lungs: Equal air entry bilaterally. No wheezing, no rales, no rhonchi. Abdomen: Positive bowel sounds. Soft, obese, nontender, nondistended. Extremities: 1+ edema bilaterally. Neuro: The patient is alert and oriented x3. LABS: White blood cell count 9.5, hemoglobin 11, hematocrit 38, platelets 354,000, sodium 137, potassium 4.7, chloride 94, CO2 30, BUN 19, creatinine 0.7, glucose 506, calcium 8.8. ASSESSMENT AND PLAN: 1. Chronic obstructive pulmonary disease exacerbation. Continue with bronchodilator therapy and supplemental oxygen. 2. Morbid obesity. Aware. 3. Rectal bleeding. GI is following. 4. Uncontrolled insulin-dependent diabetes mellitus. Will adjust the patient's insulin dosage. 5. Anxiety disorder. Continue on Klonopin. 6. Situational depression. Continue on BuSpar. 7. Constipation. The patient is on laxative therapy. 8. Hypothyroidism. Continue on Synthroid. 9. Deep vein thrombosis prophylaxis. Will start the patient on Lovenox. cc: Homa Wan MD
[2018-12-16] MEDS: SODIUM CHLORIDE 0.9% INJ SCH (20:51)
[2018-12-16] MEDS: ANUSOL-HC SUPP PR SCH (20:52)
[2018-12-17] MEDS: HUMULIN R SUBQ SCH ×3 (00:49→06:16)
[2018-12-17 05:05] LABS: ALLEN TEST YES; BE 10.8 mmoll (-3.0-3.0); BLOOD TYPE ARTERIAL; HCO3-(ACT) 33.3 mmoll (20.0-26.0); METHB 1.2 % (0.0-1.5); O2(CT) 17.5 mL/dL (15.0-23.0); O2HB 95.7 % (95.0-99.0); PO2(98.6) 99 mmHg (60-100); SAMPLE BLOOD; SAO2 98.1 % (95.0-100.0); THB 12.9 g/dL (11.5-17.4); pH(98.6) 7.36 (7.35-7.45)
[2018-12-17 05:09] LABS: MODALITY CANNULA; PCO2(98.6) 69 mmHg (35-45)
[2018-12-17] MEDS: NORCO-10 PO PRN ×3 (06:26→23:07)
[2018-12-17 07:17] LABS: BASO# 0.02 X1000 (0.0-0.2); BASO% 0.2 % (0.0-0.8); EOS# 0.06 X1000 (0.0-0.7); EOS% 0.5 % (0.0-10.0); HEMATOCRIT 43.4 % (37.0-47.0); HEMOGLOBIN 13.3 g/dL (12.0-16.0); IMM GRAN# 0.03 X1000 (0.0-0.04); IMM GRAN% 0.2 % (0.0-0.5); LYMPH# 2.03 X1000 (1.2-3.4); LYMPH% 16.4 % (20.5-51.1); MCH 29.4 PG (27-31); MCHC 30.6 g/dL (33-37); MONO% 7.3 % (1.7-9.3); MPV 9.9 FL (7.4-10.4); NEUT# 9.34 X1000 (1.4-6.5); NEUT% 75.4 % (42.2-75.2); PLT 366 X1000 (130-400); RBC 4.52 XMIL (4.2-5.4); RDW 13.6 % (11.5-14.5); WBC 12.38 X1000 (4.8-10.8)
--- NOTE | 2018-12-17 07:17 | Diag Imaging Result Doc PS360 ---
EXAM: CHEST-PORTABLE INDICATION: dyspnea TECHNIQUE: One view COMPARISON: 12/15/2018 FINDINGS: Linear opacity in the lingula and right costophrenic angle suggesting atelectasis is essentially stable. Lung volumes are slightly lower. No new consolidations are identified. Cardiac silhouette is stable. IMPRESSION: Slightly lower lung volumes. Stable chest, otherwise. Electronically signed by Douglas Lee 12/17/2018 7:14 AM
[2018-12-17 07:38] LABS: HEMOGLOBIN A1C 10.6 % (4.8-6.0)
[2018-12-17] MEDS: DUONEB (A & A) INH SCH ×5 (07:59→23:45)
[2018-12-17 08:13] LABS: AGAP 11; BUN 21 mg/dL (8-22); CHLORIDE 99 mmol/L (98-107); COSMO 292; CREATININE 0.6 mg/dL (0.5-0.9); ESTIMATED GFR > 60; GLUCOSE 64 mg/dL (70-104); POTASSIUM 3.8 mmol/L (3.5-5.1); SODIUM 146 mmol/L (136-145); TCO2 36 mmol/L (25-35)
[2018-12-17] MEDS: LOVENOX SUBQ SCH (08:13)
[2018-12-17] MEDS ORDERED: ROBINUL ONE (09:24)
[2018-12-17] MEDS ORDERED: XYLOCAINE-MPF 2% ONE (09:24)
[2018-12-17] MEDS ORDERED: FENTANYL ONE (09:25)
[2018-12-17] MEDS ORDERED: DIPRIVAN 1% ONE ×2 (09:25→10:59)
[2018-12-17] MEDS ORDERED: VERSED ONE (10:09)
[2018-12-17] MEDS: MIRALAX PO SCH ×2 (12:27→22:43)
[2018-12-17] MEDS: ROCEPHIN 1 GM in NS 50 ML IV SCH (12:33)
[2018-12-17] MEDS: SODIUM CHLORIDE 0.9% INJ SCH ×2 (12:34→22:43)
[2018-12-17] MEDS: PROTONIX IV SCH ×2 (12:34→22:43)
[2018-12-17] MEDS: SYNTHROID PO SCH (12:34)
[2018-12-17] MEDS: LASIX PO SCH (12:34)
[2018-12-17] MEDS: MIRAPEX PO SCH ×3 (12:35→17:53)
[2018-12-17] MEDS: LEVEMIR SUBQ SCH (12:36)
[2018-12-17] MEDS: BUSPAR PO SCH ×2 (12:36→22:43)
--- NOTE | 2018-12-17 14:46 | OPERATIVE NOTE ---
PROCEDURE DATE: 12/17/2018 REQUESTING PHYSICIAN: DR. CRISTINA. PROCEDURE: Colonoscopy with biopsy. PREOPERATIVE DIAGNOSES: 1. Rectal bleeding. 2. Family history of colon cancer in her son in his 40s. He age 45. 3. History of chronic smoking, quit for 5 years. 4. History of COPD on home oxygen at 2 to 3 L/minutes. 5. Morbid obesity. 6. Constipation. POSTOPERATIVE DIAGNOSES: 1. Stool throughout the colon, fair prep. 2. Lesions less than 1 cm could be missed. There was evidence of mild colitis in the descending col which was biopsied to evaluate for ischemic colitis. 3. Scattered diverticulosis in the left colon. There was evidence of internal hemorrhoids grade 2 on retroflexion. 4. Cecum could not be examined because of the retained stool. ESTIMATED BLOOD LOSS: Minimal. COMPLICATIONS: None. ANESTHESIA: Monitored anesthesia care per the anesthesiologist. SPECIMENS: Descending colon biopsy. DESCRIPTION OF PROCEDURE: After informed consent from the patient, explained the risks, benefits, indications, and alternatives to the procedure, the patient prepared for colonoscopy. The risks of the procedure, including infection, bleeding, pain, trauma to the surrounding structures, perforation explained to the patient among others, and she acknowledged understanding and agreed to proceed with the procedure. She was brought to the OR. She was turned in a left lateral position. Digital.rectal exam showed normal tone, no masses felt. No blood on the examining finger. The colonoscope was introduced in the anal verge and traversed all the way to the cecum. Cecum was identified by landmarks by appendiceal orifice. The bowel prep was fair. There was a lot of retained stool and debris throughout the colon. Cecum could not be cleared of the stool debris so it could not be examined. The rest of the colon had retained stool which was lavaged. Lesions less than 1 cm could have been missed. There was evidence of scattered diverticulosis in the sigmoid or descending. There was evidence of internal hemorrhoids grade 2 on retroflexion. There was evidence of mild mucosal erythema and mucosal edema in the descending colon. This was biopsied of the ischemic colitis. Retroflexion of the rectum revealed internal hemorrhoids grade 2. The air was withdrawn. The patient was then monitored in the OR in stable condition. RECOMMENDATIONS: 1. Patient will be on MiraLAX 17 g p.o. b.i.d. We will start patient on Proctosol HC 2.5% cream b.i.d. for 4 weeks. Patient will return to clinic in 4 weeks of discharge. 2. The patient will try to lose weight. Patient will continue to stay abstinent from smoking. Patient will need repeat colonoscopy in 1 year and a 2 day prep. 3. We discussed all the above with the patient's son and all questions were answered. Please call us with any further questions.Further recommendations to follow pending hospital course cc: MD Zachariah Momin MD MTDD
--- NOTE | 2018-12-17 18:36 | PROGRESS NOTE ---
DATE: 12/17/2018 SUBJECTIVE: The patient is resting comfortably in bed. She has no complaints at this time. OBJECTIVE: Vital Signs: Temperature 98.6 degrees, blood pressure 140/70, heart rate 103, respirations 24, O2 saturation 96% on room air. General: This is a morbidly obese female sitting at the edge of the bed in no acute distress. Head: Normocephalic, atraumatic. Heart: S1, S2 normal. Regular rate and rhythm. Lungs: Clear to auscultation bilaterally. No wheezing, no rales, no rhonchi. Abdomen: Positive bowel sounds. Soft, nontender, nondistended. Extremities: 1+ edema bilaterally. No cyanosis, no calf tenderness. Neuro: The patient is alert and oriented x4. LABS: White blood cell count 12, hemoglobin 13, hematocrit 43, platelets 366,000. ABG pH 7.36, pCO2 69, PO2 99, bicarb 33, sodium 146, potassium 3.8, BUN 21, creatinine 0.6, glucose 64. ASSESSMENT AND PLAN: 1. Chronic obstructive pulmonary disease exacerbation. Improved. Continue with bronchodilator therapy and supplemental oxygen. 2. Morbid obesity. Will consult with a dietitian to assist the patient with diet recommendations. 3. Rectal bleeding. No further bleeding noted during the hospitalization. The patient's colonoscopy today revealed mild colitis with scattered diverticula. 4. Uncontrolled insulin-dependent diabetes mellitus. Continue on Levemir. 5. Anxiety disorder. Continue on Klonopin. 6. Situational depression. Continue on BuSpar. 7. Constipation. Continue on the current bowel regimen. 8. Hypothyroidism. Continue on Synthroid. 9. Deep vein thrombosis prophylaxis. Continue on Lovenox. 10. Will consult physical therapy. cc: Homa Wan MD
[2018-12-17] MEDS: ANUSOL-HC SUPP PR SCH (22:43)
[2018-12-17] MEDS: KLONOPIN PO SCH (22:44)
[2018-12-17] MEDS: ANALPRAM HC CREAM PR SCH ×2 (22:45)
[2018-12-18] MEDS: HUMULIN R SUBQ SCH ×7 (00:08→22:47)
[2018-12-18] MEDS: NORCO-10 PO PRN ×2 (06:07→23:00)
[2018-12-18 06:49] LABS: BASO# 0.01 X1000 (0.0-0.2); BASO% 0.1 % (0.0-0.8); EOS# 0.12 X1000 (0.0-0.7); EOS% 1.7 % (0.0-10.0); HEMATOCRIT 40.5 % (37.0-47.0); HEMOGLOBIN 11.9 g/dL (12.0-16.0); IMM GRAN# 0.02 X1000 (0.0-0.04); IMM GRAN% 0.3 % (0.0-0.5); LYMPH# 1.33 X1000 (1.2-3.4); LYMPH% 18.4 % (20.5-51.1); MCH 28.8 PG (27-31); MCHC 29.4 g/dL (33-37); MCV 98.1 FL (81-99); MONO# 0.79 X1000 (0.11-0.59); MONO% 10.9 % (1.7-9.3); MPV 9.9 FL (7.4-10.4); NEUT# 4.96 X1000 (1.4-6.5); NEUT% 68.6 % (42.2-75.2); PLT 330 X1000 (130-400); RBC 4.13 XMIL (4.2-5.4); RDW 13.4 % (11.5-14.5); WBC 7.23 X1000 (4.8-10.8)
[2018-12-18 07:16] LABS: AGAP 9; BUN 15 mg/dL (8-22); CALCIUM 8.3 mg/dL (8.8-10.2); CHLORIDE 96 mmol/L (98-107); COSMO 296; CREATININE 0.5 mg/dL (0.5-0.9); ESTIMATED GFR > 60; GLUCOSE 307 mg/dL (70-104); POTASSIUM 3.9 mmol/L (3.5-5.1); SODIUM 142 mmol/L (136-145); TCO2 37 mmol/L (25-35)
[2018-12-18] MEDS: DUONEB (A & A) INH SCH ×5 (08:07→22:56)
[2018-12-18] MEDS: SYNTHROID PO SCH (08:13)
[2018-12-18] MEDS: KLONOPIN PO SCH ×2 (08:13→22:46)
[2018-12-18] MEDS: BUSPAR PO SCH ×2 (08:13→22:47)
[2018-12-18] MEDS: LASIX PO SCH (08:13)
[2018-12-18] MEDS: LOVENOX SUBQ SCH (08:14)
[2018-12-18] MEDS: PROTONIX IV SCH ×3 (08:14→22:47)
[2018-12-18] MEDS: LEVEMIR SUBQ SCH (08:14)
[2018-12-18] MEDS: SODIUM CHLORIDE 0.9% INJ SCH ×2 (08:14→22:47)
[2018-12-18] MEDS: ROCEPHIN 1 GM in NS 50 ML IV SCH ×2 (08:15→15:24)
[2018-12-18] MEDS: PERIDEX MT SCH ×2 (08:16→22:46)
[2018-12-18] MEDS: MIRALAX PO SCH ×2 (08:16→22:47)
[2018-12-18] MEDS: ANALPRAM HC CREAM PR SCH ×2 (08:38→22:46)
[2018-12-18] MEDS: MIRAPEX PO SCH ×3 (08:38→16:39)
--- NOTE | 2018-12-18 15:20 | PROGRESS NOTE ---
DATE: 12/18/2018 SUBJECTIVE: Patient is resting in bed. OBJECTIVE: Vital Signs: Temperature 98.5 degrees, pulse 89, respirations 22, blood pressure is 128/60. Oxygen saturation 97%. HEENT: Atraumatic and normocephalic. Cardiovascular System: S1 and S2. Respiratory System: Has evidence of good air entry bilaterally. Abdomen: Soft, nontender. No masses. Extremities: Have 1+ edema in the lower extremities. Central Nervous System: No obvious focal deficit noted. Labs: WBCs 7.23, hematocrit is 40.5, with a platelet count of 330,000. Sodium 142, potassium 3.9, chloride is 96, bicarb 27, BUN is 15, creatinine is 0.5. X-ray of the chest done on 12/17/2018 shows slightly lower lung volumes. Otherwise, stable chest. ASSESSMENT AND PLAN: 1. Chronic obstructive pulmonary disease exacerbation. Continue nebulized bronchodilators and steroids as well as antibiotics. 2. Rectal bleed. The patient is status post colonoscopy which was done on 12/17/2018. It showed evidence of mild colitis in the descending colon which was biopsied for ischemic colitis. There was also evidence of scattered diverticula in the left colon. 3. Diabetes mellitus. Continue sliding scale insulin as well as blood sugar monitoring. 4. Anxiety with depression. Continue present medications. 5. Hypothyroidism. Continue levothyroxine. 6. Deep vein thrombosis prophylaxis. Lovenox. 7. Gastrointestinal prophylaxis. Proton pump inhibitor. ADDENDUM: We will discontinue Lovenox in light of a history of a GI bleed and use SCDs for DVT prophylaxis. cc: Carter Marcelo MD
[2018-12-18] MEDS: PREDNISONE PO SCH (16:38)
--- NOTE | 2018-12-18 22:25 | PROVIDER PROGRESS NOTE ---
Progress Note - - 12/18/2018 SUBJECTIVE: No acute overnight events. No N/V/F, CP. Improving SOB. She report some mild lower abdominal pain. No BMs. no rectal bleeding. OBJECTIVE Last Vital Signs Temp 98.7 F 12/18/18 19:33 Pulse 99 H 12/18/18 19:33 Resp 20 12/18/18 19:33 BP 141/74 12/18/18 19:33 Pulse Ox 95 12/18/18 19:33 Height 5 ft 5 in Weight 317 lb GEN: awake, alert, NAD HEENT: anicteric, MMM NECK: thick CV: RRR, no murmurs PULM: difficult to auscultate BS ABD: obese, mild TTP lower abdomen, no rebound or guarding EXT: 1-2+ edema NEURO: nonfocal LABS 12/18/18 12/18/18 06:00 06:00 WBC 7.23 Hgb 11.9 L Plt Count 330 Sodium 142 Potassium 3.9 Chloride 96 L Carbon Dioxide 37 H BUN 15 Creatinine 0.5 Colonoscopy 12/17/2018 POSTOPERATIVE DIAGNOSES: 1. Stool throughout the colon, fair prep. 2. Lesions less than 1 cm could be missed. There was evidence of mild colitis in the descending col which was biopsied to evaluate for ischemic colitis. 3. Scattered diverticulosis in the left colon. There was evidence of internal hemorrhoids grade 2 on retroflexion. 4. Cecum could not be examined because of the retained stool. A/P: Ms. Dolores Wolff is a 68 year old morbidly obese woman with COPD on home O2, DM2, and FHx of CRC who presented with rectal bleeding 2/2 diagnostic colonoscopy on 12/17 that revealed colitis in the descending colon (biopsied), diverticulosis, and hemorrhoids. Hgb stable. No overt bleeding # Rectal bleeding: suspect secondary to ischemic colitis seen on colonoscopy # Colitis: mild on endoscopy; no indication for abx; biopsy shows focally active colitis without evidence of IBD; ddx includes ischemic, infectious # Anemia: from above # COPD exacerbation: mgmt per primary team # DM2: on SSI Will follow with you. Please call with questions
[2018-12-18] MEDS: ANUSOL-HC SUPP PR SCH (22:47)
[2018-12-19] MEDS: NORCO-10 PO PRN ×2 (05:00→14:31)
[2018-12-19] MEDS: HUMULIN R SUBQ SCH ×4 (06:38→21:05)
[2018-12-19] MEDS ORDERED: INSULIN PEN NEEDLES ONE (07:32)
[2018-12-19] MEDS: DUONEB (A & A) INH SCH ×5 (07:53→23:11)
[2018-12-19] MEDS: MIRALAX PO SCH ×2 (09:13→21:06)
[2018-12-19] MEDS: PROTONIX IV SCH ×2 (09:13→21:05)
[2018-12-19] MEDS: KLONOPIN PO SCH (09:13)
[2018-12-19] MEDS: SODIUM CHLORIDE 0.9% INJ SCH ×2 (09:13→21:05)
[2018-12-19] MEDS: PERIDEX MT SCH ×2 (09:13→21:05)
[2018-12-19] MEDS: SYNTHROID PO SCH (09:14)
[2018-12-19] MEDS: BUSPAR PO SCH ×2 (09:14→21:04)
[2018-12-19] MEDS: PREDNISONE PO SCH (09:14)
[2018-12-19] MEDS: LASIX PO SCH (09:14)
[2018-12-19] MEDS: LEVEMIR SUBQ SCH (09:14)
[2018-12-19] MEDS: ROCEPHIN 1 GM in NS 50 ML IV SCH (11:47)
[2018-12-19] MEDS: MIRAPEX PO SCH ×3 (11:48→17:36)
[2018-12-19] MEDS: ANALPRAM HC CREAM PR SCH ×2 (11:52→21:05)
--- NOTE | 2018-12-19 14:33 | PROVIDER PROGRESS NOTE ---
Progress Note 12/19/2018 SUBJECTIVE: No acute overnight events. No N/V/F, CP. SOB at baseline on home O2. Lower abdominal pain. No diarrhea, constipation, rectal bleeding. Tolerating diet. OBJECTIVE Last Vital Signs Temp 98.3 F 12/19/18 11:10 Pulse 93 H 12/19/18 11:10 Resp 20 12/19/18 11:10 BP 120/69 12/19/18 11:10 Pulse Ox 99 12/19/18 11:10 Height 5 ft 5 in Weight 317 lb GEN: awake, alert, NAD HEENT: anicteric, MMM NECK: thick CV: RRR, no murmurs PULM: difficult to auscultate BS ABD: obese, mild TTP lower abdomen with light touch; no induration, erythema; no rebound or guarding EXT: 1+ edema NEURO: nonfocal LABS 12/18/18 12/18/18 06:00 06:00 WBC 7.23 Hgb 11.9 L Plt Count 330 Sodium 142 Potassium 3.9 Chloride 96 L Carbon Dioxide 37 H BUN 15 Creatinine 0.5 Glucose 307 H D Colon, descending, biopsy: - Focally active colitis with patchy fibrosis. A/P: Ms. Dolores Wolff is a 68 year old morbidly obese woman with COPD on home O2, DM2, and FHx of CRC who presented with rectal bleeding 2/2 diagnostic colonoscopy on 12/17 that revealed colitis in the descending colon, diverticulosis, and hemorrhoids. Hgb stable. No overt bleeding. Biopsies show focally active colitis with patchy fibrosis. DDx includes infectious vs ischemic colitis. No evidence of IBD. # Rectal bleedin/2 to colitis # Colitis: mild on endoscopy; no indication for abx; biopsy shows focally active colitis without evidence of IBD; ddx includes ischemic, infectious # Anemia: from above # COPD exacerbation: mgmt per primary team # DM2: on SSI Patient ok to be discharged from GI perspective. Will sign off. Please call with questions
--- NOTE | 2018-12-19 15:33 | DISCHARGE SUMMARY ---
ADMISSION DATE: 12/15/2018 DISCHARGE DATE: DIAGNOSIS: Chronic obstructive pulmonary disease exacerbation. SECONDARY DIAGNOSES: 1. Rectal bleed. 2. Diabetes mellitus. 3. Anxiety with depression. 4. Hypothyroidism. 5. Obesity. DISCHARGE MEDICATIONS: Include the followin. Levemir 25 units subcutaneous daily. 2. Synthroid 200 mcg p.o. daily. 3. Lorazepam 0.5 mg p.o. 4 times a day as needed. 4. Mirapex 0.5 mg 3 times a day. 5. Toujeo use as directed 6. Famotidine 40 mg p.o. twice a day. 7. Ventolin 2 puffs every 4 hours. 8. Aspirin 81 mg p.o. daily. 9. Promethazine 25 mg every 6 hours. 10. Buspirone 10 g p.o. twice a day. 11. [place] 10/325 every 6 to 8 hours. 12. Lasix 40 mg p.o. daily. 13. Medrol Dosepak to be taken as directed. 14. Levaquin 500 mg p.o. daily. 15. Advair 250/50 one puff twice a day. HOSPITAL COURSE: Ms. [place]al is a 68-year-old female who was admitted to the hospital because of shortness of breath. She was diagnosed as having COPD exacerbation. She was placed on nebulized bronchodilators, steroids, as well as antibiotics. The patient was noted to have rectal bleed and was seen by the GI team. She had lower GI endoscopic studies, and showed evidence of stool throughout the colon with a lesion less than 1 cm. There is evidence of mild colitis in the descending colon which was biopsied. There is also scattered diverticula in the left colon. Biopsy report showed evidence of focal active colitis with patchy fibrosis. The patient seemed to have done well while she is stable. She can now be discharged home. PHYSICAL EXAMINATION: Vital Signs: During my evaluation today, her vital signs were as follows: temperature 98.3 degrees, pulse 93, respirations 20, blood pressure 120/69 and oxygen pressure is 99%. HEENT: Atraumatic and normocephalic. Cardiovascular: S1, S2. Respiratory: There is evidence of good air entry bilaterally. Abdomen: Obese. Nontender. No masses felt. Extremities: Trace edema in the lower extremities. Central nervous system: No obvious focal deficit noted. PLAN: The patient can be discharged home today. She does have home oxygen at home. She will need to follow up with her personal lines underwriter as well as gastroenterology in the outpatient. Biopsy showed evidence of focal active colitis with patchy fibrosis. GI will be notified prior to discharge from the hospital. The patient is expected to take her discharge medications as noted above. cc: Carter Marcelo MD MTDD
[2018-12-19] MEDS: ANUSOL-HC SUPP PR SCH (21:09)
[2018-12-20] MEDS: KLONOPIN PO SCH ×3 (02:24→21:50)
[2018-12-20] MEDS: HUMULIN R SUBQ SCH ×6 (05:24→21:23)
[2018-12-20] MEDS: DUONEB (A & A) INH SCH ×5 (07:26→22:57)
[2018-12-20] MEDS: SYNTHROID PO SCH (08:56)
[2018-12-20] MEDS: BUSPAR PO SCH ×2 (08:56→21:25)
[2018-12-20] MEDS: PREDNISONE PO SCH (08:56)
[2018-12-20] MEDS: MIRAPEX PO SCH ×3 (08:56→21:50)
[2018-12-20] MEDS: LASIX PO SCH (08:56)
[2018-12-20] MEDS: MIRALAX PO SCH ×2 (08:58→21:24)
[2018-12-20] MEDS: SODIUM CHLORIDE 0.9% INJ SCH ×2 (08:58→21:26)
[2018-12-20] MEDS: PERIDEX MT SCH ×3 (08:58→21:25)
[2018-12-20] MEDS: PROTONIX IV SCH ×3 (08:58→21:26)
[2018-12-20] MEDS: LEVEMIR SUBQ SCH ×2 (08:58→21:49)
[2018-12-20] MEDS: ANALPRAM HC CREAM PR SCH ×2 (08:59→21:27)
[2018-12-20] MEDS: ROCEPHIN 1 GM in NS 50 ML IV SCH (10:09)
--- NOTE | 2018-12-20 18:00 | PROGRESS NOTE ---
DATE: 12/20/2018 SUBJECTIVE: The patient is awake, not in any obvious distress. OBJECTIVE: Vital signs: Temperature 97.9 degrees, pulse 78, respirations 22, blood pressure is 140/70, oxygen saturation is 96%. HEENT: Atraumatic, normocephalic. Cardiovascular: S1, S2. Respiratory exam has evidence of good air entry bilaterally. Abdomen is soft, obese, nontender. No masses. Extremities: Trace edema in both lower extremities. Central nervous system: No obvious focal deficit noted. ASSESSMENT AND PLAN: 1. Chronic obstructive pulmonary disease. Continue the patient on nebulized bronchodilators, steroids, as well as antibiotics. 2. Rectal bleed. Biopsy of the descending colon showed evidence of focal active colitis. 3. Diabetes mellitus. Optimize her blood sugar control. 4. Anxiety with depression. Continue current medication. 5. Hypothyroidism. Continue levothyroxine. 6. Deep vein thrombosis prophylaxis. Lovenox. 7. Gastrointestinal prophylaxis. Proton pump inhibitor. 8. Disposition: Patient ready for discharge; however, blood sugar is noted to be markedly elevated, so discharge has been placed on hold. Hopefully we can get her out of the hospital by tomorrow with optimizing of blood sugar control. cc: Carter Marcelo MD
[2018-12-20] MEDS: ANUSOL-HC SUPP PR SCH (21:27)
[2018-12-21] MEDS: HUMULIN R SUBQ SCH ×5 (06:36→22:12)
[2018-12-21] MEDS: DUONEB (A & A) INH SCH ×4 (08:27→19:29)
[2018-12-21] MEDS ORDERED: PREDNISONE PO SCH (09:00)
[2018-12-21] MEDS: KLONOPIN PO SCH ×2 (09:14→21:19)
[2018-12-21] MEDS: LEVEMIR SUBQ SCH ×2 (09:16→21:18)
[2018-12-21] MEDS: PERIDEX MT SCH ×2 (09:17→21:17)
[2018-12-21] MEDS: MIRAPEX PO SCH ×3 (09:18→21:17)
[2018-12-21] MEDS: BUSPAR PO SCH ×2 (09:18→21:17)
[2018-12-21] MEDS: SYNTHROID PO SCH (09:18)
[2018-12-21] MEDS: ANALPRAM HC CREAM PR SCH ×2 (09:19→21:20)
[2018-12-21] MEDS: LASIX PO SCH (09:19)
[2018-12-21] MEDS: MIRALAX PO SCH ×2 (09:20→21:20)
[2018-12-21] MEDS: PROTONIX IV SCH (09:29)
[2018-12-21] MEDS: SODIUM CHLORIDE 0.9% INJ SCH (09:29)
[2018-12-21] MEDS: ROCEPHIN 1 GM in NS 50 ML IV SCH (09:30)
[2018-12-21] MEDS ORDERED: HUMULIN R IV ONE (13:19)
[2018-12-21] MEDS: NORCO-10 PO PRN ×2 (13:46→21:46)
--- NOTE | 2018-12-21 14:19 | PROGRESS NOTE ---
DATE: 12/21/2018 SUBJECTIVE: The patient is resting comfortable in bed. OBJECTIVE: Vital signs: Temperature 97.9 degrees, pulse 99, respirations 20, blood pressure 130/61, oxygen saturation is 94%. HEENT: Atraumatic, normocephalic. Cardiovascular: S1, S2. Respiratory: Has evidence of good air entry bilaterally. Abdomen: Obese, nontender. No masses. Extremities: Has edema 1+ in both lower extremities. Central nervous system: No obvious focal deficit. LABORATORY DATA: Blood sugar 500. ASSESSMENT AND PLAN: 1. Chronic obstructive pulmonary disease. Continue nebulized bronchodilators, tapered dose of steroids. Continue antibiotics. 2. Rectal bleed, stable. Biopsy from the descending colon showed evidence of focal active colitis. Gastroenterology aware. 3. Diabetes mellitus. Continue blood sugar monitoring as well as optimization of blood sugar control. I have gone up on her Levemir to 15 units subcutaneous twice a day. Hopefully, there will be better control of the patient's blood sugar. 4. Hypothyroidism. Continue levothyroxine. 5. Anxiety with depression. Continue psych medications. 6. Deep vein thrombosis prophylaxis. Lovenox. 7. Gastrointestinal prophylaxis. Proton pump inhibitor. 8. Disposition. The patient ready for discharge but blood sugar levels still remain high. We will continue to adjust current regimen for blood sugar control. I would like to see her sugars less than 250 prior to discharge. cc: Carter Marcelo MD MTDD
[2018-12-21] MEDS: PROTONIX PO SCH (21:17)
[2018-12-21] MEDS: ANUSOL-HC SUPP PR SCH (21:19)
[2018-12-22] MEDS: HUMULIN R SUBQ SCH ×4 (00:17→12:35)
[2018-12-22] MEDS: NORCO-10 PO PRN ×2 (02:48→10:05)
[2018-12-22] MEDS: PROTONIX PO SCH (06:22)
[2018-12-22 07:27] VITALS: BP 138/62
[2018-12-22] MEDS: DUONEB (A & A) INH SCH ×2 (07:38→11:17)
[2018-12-22] MEDS ORDERED: PREDNISONE PO SCH (09:00)
[2018-12-22] MEDS: ROCEPHIN 1 GM in NS 50 ML IV SCH (09:57)
[2018-12-22] MEDS: KLONOPIN PO SCH (10:02)
[2018-12-22] MEDS: MIRAPEX PO SCH (10:03)
[2018-12-22] MEDS: LASIX PO SCH (10:03)
[2018-12-22] MEDS: SYNTHROID PO SCH (10:03)
[2018-12-22] MEDS: BUSPAR PO SCH (10:04)
[2018-12-22] MEDS: LEVEMIR SUBQ SCH (10:04)
[2018-12-22] MEDS: PERIDEX MT SCH (10:05)
[2018-12-22] MEDS: MIRALAX PO SCH (10:06)
[2018-12-22] MEDS: ANALPRAM HC CREAM PR SCH (10:06)
[2018-12-22] MEDS ORDERED: INSULIN PEN NEEDLES ONE (10:24)
--- NOTE | 2018-12-22 15:52 | DISCHARGE SUMMARY ---
ADMISSION DATE: 12/15/2018 DISCHARGE DATE: 12/22/2018 DISCHARGE DIAGNOSES: 1. Morbid obesity. 2. Poorly-controlled diabetes, actually under better control. Blood sugars currently in the mid 1 100s on Levemir 50 twice a day. 3. Rectal bleed status post biopsy. 4. Chronic obstructive pulmonary disease with exacerbation, improved. 5. Hypothyroidism. 6. Chronic anxiety and depression. CONSULTATIONS: GI. PROCEDURES: Biopsy. BRIEF HOSPITAL COURSE: Patient is a 68-year-old female who presented to the emergency department and treated in the usual fashion, placed on breathing treatments, oxygen and steroids. Her blood sugars were markedly elevated. She thankfully was able to wean down on her steroids and subsequently was improved. She is on oxygen at home and she is her baseline oxygen need. Her acute hypoxic respiratory failure has improved back to her chronic status. Thankfully, on discharge, she is awake alert, she is in no distress. Overall she is feeling better. DISPOSITION: Patient will be discharged home. DISCHARGE INSTRUCTIONS: Again discussed with her the importance of blood sugar control as well as diet control. Discussed with her that she should consider Victoza, Ozempic, etc. This would be in addition to her insulin to try to improve her overall diabetic control at home. She will follow up with her outpatient doctor regarding this. She will not be discharged home on antibiotics as she has received a 7 day course. She will continue her oxygen and breathing treatments at home. cc: uCrt Francisco MD
== END 2018-12-22 13:47 | disposition home health service (06) | DRG 190 ==
LOC: SUPCPDRO → SUATTDRO → ED 01:26 → 4N 08:12 → SUATTDRO 08:12
PROVIDERS: ATTEND Family Medicine
CPT/HCPCS: 71010; 71045; 74177; 80048; 80053; 81001; 82272; 82805; 82947; 82948; 83036; 83605; 83690; 83880; 84484; 85025; 85610; 85730; 87040; 88305; 88313; 94640; 94760; 94761; 94799; 96374; 96375; 97116; 97162; 97530; 99285; A9270; C9113; J0696; J1650; J2250; J2405; J2930; J3010; J7506; J7512; Q9967; S0164; XXXXX

== ENCOUNTER 2019-07-20 01:32 | Inpatient (IN) ==
[2019-07-20] MEDS ORDERED: MORPHINE IV ONE (01:44)
[2019-07-20] MEDS ORDERED: ZOFRAN IV ONE (01:45)
[2019-07-20 03:08] LABS: BASO# 0.02 X1000 (0.0-0.2); BASO% 0.1 % (0.0-0.8); EOS# 0.01 X1000 (0.0-0.7); EOS% 0.1 % (0.0-10.0); HEMATOCRIT 42.7 % (37.0-47.0); HEMOGLOBIN 12.7 g/dL (12.0-16.0); IMM GRAN# 0.14 X1000 (0.0-0.04); IMM GRAN% 0.8 % (0.0-0.5); LYMPH# 1.39 X1000 (1.2-3.4); LYMPH% 7.7 % (20.5-51.1); MCH 27.7 PG (27-31); MCHC 29.7 g/dL (33-37); MONO# 1.02 X1000 (0.11-0.59); MONO% 5.6 % (1.7-9.3); MPV 9.5 FL (7.4-10.4); NEUT# 15.54 X1000 (1.4-6.5); NEUT% 85.7 % (42.2-75.2); PLT 389 X1000 (130-400); RBC 4.59 XMIL (4.2-5.4); RDW 14.4 % (11.5-14.5); WBC 18.12 X1000 (4.8-10.8)
[2019-07-20 03:14] LABS: INR 1.1; PROTIME 14.4 Seconds (11.0-16.0)
[2019-07-20 03:50] LABS: AGAP 8; ALB/GLOB RATIO 1.1; ALKALINE PHOSPHATASE 120 U/L (32-104); BUN 17 mg/dL (8-22); CALCIUM 9.4 mg/dL (8.8-10.2); CHLORIDE 89 mmol/L (98-107); COSMO 281; CREATININE 0.8 mg/dL (0.5-0.9); ESTIMATED GFR > 60; GLUCOSE 405 mg/dL (70-104); GOT 14 U/L (10-30); GPT 19 U/L (10-36); SODIUM 131 mmol/L (136-145); TCO2 34 mmol/L (25-35); TOTAL BILIRUBIN 0.32 mg/dL (0.20-1.00); TOTAL PROTEIN 7.6 g/dL (6.3-8.3)
[2019-07-20] MEDS ORDERED: HUMULIN R IV ONE (03:52)
[2019-07-20] MEDS ORDERED: CALCIUM CHLORIDE 1 GM in NS 100 ML IV ONE (03:54)
[2019-07-20] MEDS ORDERED: SODIUM BICARBONATE 8.4% IV PUSH ONE (03:54)
[2019-07-20] MEDS ORDERED: ALBUTEROL NEB INH ONE (03:54)
--- NOTE | 2019-07-20 03:57 | PROVIDER DOCUMENTATION ---
This chart was entered by Emma Lan Scribe, acting as scribe for Mayito Adam MD. HPI-Musculoskeletal Pain/Inj - GENERAL Chief Complaint: Hip Injury Stated Complaint: fall / hip pain Time Seen by Provider: 07/20/19 01:40 Source: patient - HX OF PRESENT ILLNESS-MUSKULOSKELTAL Nature of Presenting Problem: pt is a 69 yr old female presenting via EMS post fall with complaint of left hip pain, pt reports she slipped off her rollerator walker in the kitchen and fell to the ground, pt denies any other pain or injury. Quality of Pain: reports: sharp, throbbing Severity in ED: severe Onset/Duration: 1-3 hours ago Timing: still present Modifying Factors: improves with: movement (increases pain), other medication (oral morphine-no relief) Any recent injury?: Yes Locality of Occurance: Home Similar Symptoms Previously?: No Recently seen or treated by another doctor?: No - FALL INJURY Location of Pain/Injury: reports: pelvis (left) Pain Radiation: reports: legs (upper) (left) Reason for Fall: reports: slipped (off rollerator walker) Symptoms prior to fall:: denies: chest pain, dizzy/lightheaded Loss of Consciousness: no loss of consciousness Injury Associated Symptoms: reports: joint pain, unable to bear weight, trouble walking - HIP/PELVIS PAIN/INJURY Hip Pain Location: reports: hip (L) Pain Radiation: reports: upper legs Context / Method of Injury: reports: fall Associated Symptoms: reports: denies symptoms Review of Systems - Adult - REVIEW OF SYSTEMS - ADULT Constitutional: reports: no symptoms reported Eyes: reports: no symptoms reported Ears, Nose, Mouth & Throat: reports: no symptoms reported Cardiovascular: denies: chest pain, syncope Respiratory: reports: no symptoms reported Gastrointestinal: reports: no symptoms reported Genitourinary: reports: no symptoms reported Musculoskeletal: reports: bone pain, joint pain. denies: back pain, neck pain Integumentary: reports: no symptoms reported Neurological: denies: dizziness/vertigo, syncope Psychiatric: reports: no symptoms reported Endocrine: reports: no symptoms reported Hematologic/Lymphatic: reports: no symptoms reported Allergic/Immunologic: reports: no symptoms reported All Other Systems: Reviewed and Negative Past History - Adult - PAST MEDICAL HISTORY-ADULT Review of Records: reports: Old Records Reviewed, Nursing Assessment Review, Medications Reviewed, Social history reviewed & non-contributory. Major Childhood Illnesses: reports: denies history Cardiovascular: reports: CHF, HTN Respiratory: reports: denies history Gastrointestinal: reports: cholelithiasis Obstetrical/Gynecological: reports: denies history Genitourinary: reports: denies history Musculoskeletal: reports: denies history Neurological: reports: CVA Endocrine/Immune: reports: Diabetes Other Conditions: reports: denies history - PRIOR SURGERIES/PROCEDURES Surgical/Procedure History: reports: appendectomy, BTL - IMMUNIZATION STATUS Childhood Immunizations: See Nurse Assessment Flu Vaccine: See Nurse Assessment - FAMILY HISTORY Family History: reviewed, not pertinent - SOCIAL HISTORY Smoking: quit greater than 1 year Living Situation: family Physical Exam-Injury Related - Physical Exam-Injury Related Initial Vital Signs Reviewed: Yes General Appearance: alert, mild distress, obese Immobilization?: negative: backboard Eyes: PERRL/EOMI Head, Ears, Nose, Mouth & Throat: normocephalic/atraumatic, moist mucous membranes Neck: non-tender, full range of motion, supple, normal inspection Respiratory: lungs clear, normal breath sounds Cardiovascular: normal peripheral pulses, regular rate, rhythm Chest/Breast: deferred Peripheral Pulses: dorsalis-pedis (L): 2+ Abdominal Exam: non tender, soft Back Exam: normal inspection Extremity: tenderness (left hip), other (shortening and rotation left leg) Integumentary: normal color, warm/dry Neurologic: grossly normal Psych/Mental Status: normal mood/affect Progress - PLAN OF CARE/RESULTS Progress/Plan/Lab Results: Vital Signs - 8 hr 07/20/19 01:34 07/20/19 01:45 07/20/19 02:00 Temperature 98.6 F Pulse Rate 101 H Respiratory Rate 18 Blood Pressure 159/128 159/128 O2 Sat by Pulse Oximetry 92 L 94 L 92 L Laboratory Results - last 24 hr 07/20/19 07/20/19 07/20/19 02:44 02:44 02:44 WBC 18.12 H RBC 4.59 Hgb 12.7 Hct 42.7 MCV 93.0 MCH 27.7 MCHC 29.7 L RDW Std Deviation 14.4 Plt Count 389 MPV 9.5 Immature Gran % (Auto) 0.8 H Neut % (Auto) 85.7 H Lymph % (Auto) 7.7 L [place] % (Auto) 5.6 Eos % (Auto) 0.1 Baso % (Auto) 0.1 Immature Gran # (Auto) 0.14 H Neut # (Auto) 15.54 H Lymph # (Auto) 1.39 [place] # (Auto) 1.02 H Eos # (Auto) 0.01 Baso # (Auto) 0.02 PT 14.4 INR 1.10 Sodium 131 L Potassium 7.0 H* Chloride 89 L Carbon Dioxide 34 Anion Gap 8 BUN 17 Creatinine 0.8 Estimated GFR/1.73 m2 > 60 BUN/Creatinine Ratio 21 Glucose 405 H* Calculated Osmolality 281 Calcium 9.4 Total Bilirubin 0.32 AST 14 ALT 19 Alkaline Phosphatase 120 H Total Protein 7.6 Albumin 4.0 Globulin 3.6 Albumin/Globulin Ratio 1.1 Orders Category Date Time Status Cardiac Monitoring DIRECTED Care 07/20/19 03:52 Ordered CHEST-PORTABLE [RAD] Stat Exams 07/20/19 01:46 Taken KNEE 3 VIEWS LEFT [RAD] Stat Exams 07/20/19 02:20 Taken XRAY PELVIS W/HIP 2-3VW LT [RAD] Stat Exams 07/20/19 01:46 Taken CBC WITH ELECTRONIC DIFF [HEME] Stat Lab 07/20/19 02:44 Completed CMP [COMPREHENSIVE METABOLIC PANEL] [CHEM] Stat Lab 07/20/19 02:44 Completed PT [PROTIME WITH INR] [COAG] Stat Lab 07/20/19 02:44 Completed Albuterol [Albuterol Neb] Med 07/20/19 03:54 Once 2.5 mg INH NOW ONE Calcium Chloride 1 gm Med 07/20/19 03:54 Ordered 0.9% Sodium Chloride Inj [Ns] 100 ml IV NOW Insulin Human Regular [Humulin R] Med 07/20/19 03:52 Once 10 unit IV NOW ONE Morphine Med 07/20/19 01:44 Discontinued 4 mg IV NOW ONE Ondansetron [Zofran] Med 07/20/19 01:45 Discontinued 4 mg IV STAT ONE Sodium Bicarbonate 8.4% Med 07/20/19 03:54 Once 50 meq IV PUSH NOW ONE Aerosol Treatments Routine Oth 07/20/19 03:54 Ordered Aerosol Treatments Stat Oth 07/20/19 03:54 Ordered Oxygen Device Stat Oth 07/20/19 01:47 Active EKG [EKG] Stat Ther 07/20/19 01:47 Ordered Result Diagrams: 07/20/19 02:44 07/20/19 02:44 - XRAY 1 XRAY: Left XRAY Study: Pelvis, Hip XRAY Interpretation: displaced left intertrochanteric fracture Departure - Departure Date of Disposition Decision: 07/20/19 Time of Disposition Decision: 03:56 DIAGNOSIS: Hyperkalemia Fracture, intertrochanteric, left femur Qualifiers: Encounter type: initial encounter Fracture type: closed Fracture alignment: displaced Qualified Code(s): S72.142A - Displaced intertrochanteric fracture of left femur, initial encounter for closed fracture COPD (chronic obstructive pulmonary disease) Qualifiers: COPD type: unspecified COPD Qualified Code(s): J44.9 - Chronic obstructive pulmonary disease, unspecified Uncontrolled diabetes mellitus Qualifiers: Diabetes mellitus type: type 2 Glycemic state: with hyperglycemia Qualified Code(s): E11.65 - Type 2 diabetes mellitus with hyperglycemia Disposition: ADMITTED INPATIENT 09 Certified Medical Emergency: Emergent Condition: Stable Referrals and Follow-Ups: Kane Pierre MD [Primary Care Provider] - - Critical Care Note This patient required my direct & personal management of CC.: No Attestation - Physician/ MARGA Attestation Patient care was provided by Advanced Practice Provider:: No The physician spent face to face time with patient:: Yes Advanced Practice Provider documentation review:: Supervising physician onsite and consulted in the evaluation and care of this patient. The physician did have a face to face encounter with the patient. This chart was documented by the indicated scribe, (Emma Lan Scribe) and accurately reflects the services I performed and decisions made by me, Mayito Adam MD, as attested by the provider's signature.
[2019-07-20] MEDS ORDERED: NS 1,000 ML IV ONE (04:10)
[2019-07-20] MEDS ORDERED: LASIX IV ONE (04:15)
--- NOTE | 2019-07-20 04:36 | EKG Report ---
Test Performed on : 07/20/2019 01:51:24 AM Test Reason : fall Blood Pressure : / mmHG Vent. Rate : 099 BPM Atrial Rate : 099 BPM P-R Int : 152 ms QRS Dur : 086 ms QT Int : 320 ms P-R-T Axes : 065 -58 038 degrees QTc Int : 410 ms Normal sinus rhythm. Left axis deviation Minimal voltage criteria for LVH, may be normal variant Inferior infarct , age undetermined Anterior infarct (cited on or before 20-SEP-2015) Abnormal ECG When compared with ECG of 14-JAN-2019 18:40, Inferior infarct is now present Questionable change in initial forces of Lateral leads Unconfirmed Result
[2019-07-20 04:52] LABS: URINE SOURCE CATH
[2019-07-20 04:55] LABS: BILIRUBIN URINE NEGATIVE (NEGATIVE); BLOOD URINE NEGATIVE (NEGATIVE); COLOR YELLOW; GLUCOSE URINE >1000 mg/dL (NEGATIVE); KETONE URINE TRACE mg/dL (NEGATIVE); LEUKOCYTES URINE NEGATIVE (NEGATIVE); NITRITE URINE NEGATIVE (NEGATIVE); PROTEIN URINE NEGATIVE (NEGATIVE); SP GRAVITY URINE 1.022; TURBIDITY URINE CLEAR (CLEAR); UROBILINOGEN URINE NORMAL (NORMAL)
[2019-07-20 04:56] LABS: UR EPITHELIAL CELLS <10 /HPF (<10); URINE BACTERIA NEGATIVE /HPF; URINE RBC <10 /HPF (<10); URINE WBC <10 /HPF (<10)
[2019-07-20] MEDS: HUMALOG SUBQ SCH ×5 (05:07→23:08)
[2019-07-20] MEDS ORDERED: TYLENOL PO PRN (06:10)
[2019-07-20 07:01] LABS: HEMOGLOBIN A1C 10.2 % (4.8-6.0)
[2019-07-20] MEDS: MORPHINE IV PRN ×4 (07:54→23:09)
[2019-07-20] MEDS: ZOFRAN IV PRN ×2 (08:00→12:15)
--- NOTE | 2019-07-20 08:07 | Diag Imaging Result Doc PS360 ---
EXAM: KNEE 3 VIEWS LEFT INDICATION: fall TECHNIQUE: 4 views COMPARISON: None. FINDINGS: There is advanced tricompartmental degenerative arthropathy with marked loss of joint space at the medial and lateral compartments with marginal osteophyte formation. There is mild chondrocalcinosis at the medial compartment. There is no discrete fracture, dislocation, or significant intrinsic osseous lesion, otherwise. There is mild soft tissue edema around the knee. IMPRESSION: Advanced degenerative changes and mild soft tissue edema. No definite acute osseous abnormality by plain radiograph. Electronically signed by Douglas Lee 07/20/2019 8:05 AM
--- NOTE | 2019-07-20 08:09 | Diag Imaging Result Doc PS360 ---
EXAM: XRAY PELVIS W/HIP 2-3VW LT INDICATION: left hip pain TECHNIQUE: 2 views COMPARISON: None. FINDINGS: There is a fracture through the proximal shaft of the left femur extending to the lesser trochanter. There is associated varus angulation of the fracture. No other fracture or dislocation is appreciated. The surrounding soft tissues are essentially unremarkable. IMPRESSION: Fracture of the proximal left femur as described. Electronically signed by Douglas Lee 07/20/2019 8:06 AM
--- NOTE | 2019-07-20 08:11 | Diag Imaging Result Doc PS360 ---
EXAM: CHEST-PORTABLE INDICATION: left hip pain TECHNIQUE: One view COMPARISON: 01/14/2019 FINDINGS: There is minimal lingular scarring versus atelectasis similar to the previous study. There is mild chronic appearing interstitial thickening bilaterally. There is no discrete pleural fluid collection or pneumothorax. The cardiac silhouette is prominent, possibly due to magnification from AP technique. IMPRESSION: Linear atelectasis and bilateral mild interstitial thickening as described. No definite acute chest pathology, otherwise. Electronically signed by Douglas Lee 07/20/2019 8:08 AM
[2019-07-20] MEDS ORDERED: VANCOMYCIN IV PER PHARMACY MISC SCH (08:15)
--- NOTE | 2019-07-20 08:23 | ORTHOPAEDICS CONSULTATION ---
DATE: 07/20/2019 SUBJECTIVE: Patient is a pleasant 69-year-old female with multiple medical problems who is 1 day status post fall at home when she slipped off her rolling walker in the kitchen and fell to the ground and developed immediate pain and discomfort in her left hip. She presented to the emergency room and x-rays revealed left intertrochanteric femur fracture. She was admitted to the hospital and Orthopedic consultation requested. The patient does have significant medical problems including severe COPD requiring home O2 for many years. Patient reports she is currently under hospice care. She has underlying morbid obesity, type 2 diabetes as well as hypertension. The patient states she is a household ambulator with a rolling walker. MEDICATIONS: Reviewed and contained within the chart. ALLERGIES: Azithromycin, hydromorphone, HCL and levofloxacin. PAST MEDICAL HISTORY: Chronic obstructive pulmonary disease and continues home O2, morbid obesity with obstructive sleep apnea, congestive heart failure, hypothyroidism, anxiety, depression, hypertension, diabetes mellitus type 2 uncontrolled, cholelithiasis, Meniere's disease. PAST SURGICAL HISTORY: Appendectomy, hemorrhoidectomy, back surgery, removal of left ovarian cyst. PHYSICAL EXAMINATION: Patient is awake, alert, and cooperative with exam. She is nontender along the cervical spine. She has no palpable deformities along the bilateral extremities, able to actively flex her fingers. The patient's left lower extremity was held externally in rotated position, it is shortened. Significant tenderness to palpation about the hip, tenderness to gentle movement. She does have some chronic edema bilateral lower extremities with some discoloration to her lower leg with chronic stasis. Her compartments were soft. She is able actively dorsiflex and plantar flex her ankle. Her right lower extremity has no palpable deformity. Does have chronic lymphedema. X-rays reveal left intertrochanteric femur fracture. IMPRESSION: Left intertrochanteric femur fracture. PLAN: At this point, discussed treatment options with the patient. At this time would recommend proceeding with intramedullary nailing of the left femur if the patient is able to obtain medical preoperative medical clearance. Risks and benefits of surgery were explained, including the risks of anesthesia, , bleeding, infection, failure to relieve pain, postoperative stiffness, injury to nerves, blood clots, and other imponderables. All of her questions were answered. We will wait for further evaluation and for preoperative medical clearance. cc: Jude Juan MD
[2019-07-20] MEDS: LANTUS INSULIN SUBQ SCH (09:21)
[2019-07-20] MEDS: ROCEPHIN 1 GM in NS 50 ML IV SCH (09:22)
[2019-07-20] MEDS: MS CONTIN PO SCH ×2 (09:34→17:05)
[2019-07-20] MEDS: DUONEB (A & A) INH SCH ×3 (10:21→23:00)
[2019-07-20] MEDS: ATIVAN PO PRN (11:04)
[2019-07-20] MEDS: VANCOMYCIN 2 GM in NS 500 ML IV SCH (11:04)
[2019-07-20] MEDS: NORCO-10 PO PRN (12:14)
[2019-07-20] MEDS: LOKELMA POWDER PACKET PO SCH ×2 (12:32→16:00)
--- NOTE | 2019-07-20 14:13 | PROGRESS NOTE ---
DATE: 07/20/2019 SUBJECTIVE: Patient admitted early this morning after fall with left hip fracture. Initially planned for orthopedic evaluation and surgical repair in the OR, but patient has refused surgery, stating that she knows she is at the end of her life and does not want any surgical evaluation. Patient is fully oriented and appears to be aware of the consequences of her decisions. Discussed with patient that while she does have end-stage COPD, she does not appear to have anything imminently terminal, and that even though she does not walk much at home, surgical repair of her fracture might provide significant pain relief. Patient expressed understanding, but continued to refuse surgical evaluation. She does endorse increased cough from baseline, but appears to have reasonable oxygen saturations on her home 4 L. Chest x-ray is read as bilateral mild interstitial thickening, but to me looks like she might have a little bit of a left lower lobe pneumonia. Given patient's increased cough and borderline saturations on her home oxygen, we will obtain CT to make sure she does not have pneumonia which patient is amenable to treating if present. Also with some erythema of her legs. Has pretty significant chronic venous stasis dermatitis, but a couple areas of increased redness, as well as some honey-colored crusting which might be developing impetigo. Placed on empiric antibiotics for now with vancomycin and Rocephin for likely cellulitis and possible pneumonia. If CT is negative, we will stop the Rocephin and just continue the vancomycin for now. We will treat patient's active infections and plan on discharge back home with hospice once those are improving, likely Monday.
--- NOTE | 2019-07-20 19:35 | Diag Imaging Result Doc PS360 ---
EXAM: CT THORAX W/O CONTRAST INDICATION: cough, copd. ? pneumonia. TECHNIQUE: This exam was performed using automated exposure control, adjustment of mA or kV according to patient size, and/or use of iterative reconstruction technique. COMPARISON: 01/28/2018 FINDINGS: There is mild subsegmental atelectasis at the lung bases. The lungs are grossly clear, otherwise. There is no pleural fluid collection and no pneumothorax. There is no cardiomegaly. There are a few calcified left hilar lymph nodes indicating prior granulomatous disease. There is no evidence of significant mediastinal or hilar lymphadenopathy. Limited views of the upper abdomen are grossly unremarkable. There are ventral marginal osteophytes at several thoracic levels and there is left shoulder degenerative arthropathy. There is no evidence of acute osseous abnormality. IMPRESSION: Mild bibasilar subsegmental atelectasis. No evidence of acute pathology, otherwise. Electronically signed by Douglas Lee 07/20/2019 7:33 PM
[2019-07-20] MEDS ORDERED: SEROQUEL PO SCH (21:00)
[2019-07-21] MEDS: MS CONTIN PO SCH ×3 (00:23→16:53)
[2019-07-21] MEDS: HUMALOG SUBQ SCH ×5 (00:24→21:39)
[2019-07-21] MEDS: ATIVAN PO PRN ×4 (01:26→21:39)
--- NOTE | 2019-07-21 01:55 | ED EKG INTERP ---
This chart was entered by Liat Alfonso Scribe, acting as scribe for Mayito Adam MD. EKG Interpretation - EKG Time of EKG reading by physician:: 01:51 EKG Read and Signed by:: Mayito Adam EKG Interpretation (*Must complete 3 of following elements*): Abnormal Rate: 99 Rhythm: NSR [place]: left QRS: LVH (minimal voltage criteria), other (inferior/anterior infarct) GA Interval: normal ST Wave: normal Attestation - Physician/ MARGA Attestation Patient care was provided by Advanced Practice Provider:: No The physician spent face to face time with patient:: Yes Advanced Practice Provider documentation review:: Supervising physician onsite and consulted in the evaluation and care of this patient. The physician did have a face to face encounter with the patient. This chart was documented by the indicated scribe, (Liat Alfonso Scribe) and accurately reflects the services I performed and decisions made by me, Mayito Adam MD, as attested by the provider's signature.
[2019-07-21] MEDS: DUONEB (A & A) INH SCH ×4 (04:14→22:30)
[2019-07-21] MEDS: MORPHINE IV PRN ×4 (04:42→21:38)
[2019-07-21 05:54] LABS: BASO# 0.01 X1000 (0.0-0.2); BASO% 0.1 % (0.0-0.8); EOS# 0.02 X1000 (0.0-0.7); EOS% 0.2 % (0.0-10.0); HEMATOCRIT 39.3 % (37.0-47.0); HEMOGLOBIN 11.6 g/dL (12.0-16.0); IMM GRAN# 0.03 X1000 (0.0-0.04); IMM GRAN% 0.2 % (0.0-0.5); LYMPH# 1.42 X1000 (1.2-3.4); LYMPH% 11.1 % (20.5-51.1); MCH 27.6 PG (27-31); MCHC 29.5 g/dL (33-37); MCV 93.3 FL (81-99); MONO# 0.95 X1000 (0.11-0.59); MONO% 7.4 % (1.7-9.3); MPV 9.5 FL (7.4-10.4); NEUT# 10.33 X1000 (1.4-6.5); PLT 306 X1000 (130-400); RBC 4.21 XMIL (4.2-5.4); RDW 14.4 % (11.5-14.5); WBC 12.76 X1000 (4.8-10.8)
[2019-07-21 06:43] LABS: AGAP 8; BUN 14 mg/dL (8-22); CALCIUM 8.7 mg/dL (8.8-10.2); CHLORIDE 87 mmol/L (98-107); COSMO 273; CREATININE 0.5 mg/dL (0.5-0.9); ESTIMATED GFR > 60; GLUCOSE 215 mg/dL (70-104); POTASSIUM 4.5 mmol/L (3.5-5.1); SODIUM 133 mmol/L (136-145); TCO2 38 mmol/L (25-35)
[2019-07-21] MEDS: ROCEPHIN 1 GM in NS 50 ML IV SCH (08:57)
[2019-07-21] MEDS: LANTUS INSULIN SUBQ SCH ×2 (09:02→21:39)
[2019-07-21] MEDS ORDERED: DIFLUCAN PO ONE (09:28)
--- NOTE | 2019-07-21 10:46 | ORTHOPAEDICS PROGRESS NOTE ---
DATE: 07/21/2019 SUBJECTIVE: Patient is a pleasant 69-year-old female, who is 2 days status post fall sustaining a left intertrochanteric femur fracture with subtrochanteric extension. She was admitted to the hospital and then maintained Leslie's traction. Patient has significant underlying medical problems including morbid obesity, COPD requiring home O2 for many years and diabetes. Patient is currently under hospice care. Patient yesterday speaking with Dr. Guerrero she refused to proceed with surgical management. Patient has thought more about it and talked with the family and is considering proceeding with surgery. OBJECTIVE: On physical exam, patient's left lower extremity: Leslie's traction is in place. She has active dorsiflexion, plantar flexion. She has expected tenderness to palpation. LABORATORY DATA: Her hemoglobin is 11.6 hematocrit 39.3. IMPRESSION: Left intertrochanteric femur fracture with subtrochanteric extension. PLAN: At this point, I did have long discussion with patient. I did speak with her son and they feel that they wish to proceed with surgical management. We did discuss risk and benefits with once again. All her questions were answered. They do understand the risk with surgery given her underlying medical condition. Will plan on proceeding with surgery tomorrow if the patient and family wish to proceed. cc: Jude Juan MD MTDD
[2019-07-21] MEDS: VANCOMYCIN 2 GM in NS 500 ML IV SCH (11:03)
[2019-07-21] MEDS ORDERED: VANCOMYCIN IV PER PHARMACY MISC SCH (13:15)
[2019-07-21 13:38] LABS: ALLEN TEST YES; BE 16.1 mmoll (-3.0-3.0); BLOOD TYPE ARTERIAL; HCO3-(ACT) 37.4 mmoll (20.0-26.0); METHB 0.9 % (0.0-1.5); O2(CT) 14.9 mL/dL (15.0-23.0); O2HB 92.6 % (95.0-99.0); PO2(98.6) 65 mmHg (60-100); SAMPLE BLOOD; SAO2 95.2 % (95.0-100.0); THB 11.4 g/dL (11.5-17.4); pH(98.6) 7.41 (7.35-7.45)
[2019-07-21 13:39] LABS: MODALITY CANNULA
[2019-07-21 13:41] LABS: PCO2(98.6) 69 mmHg (35-45)
--- NOTE | 2019-07-21 14:06 | PROGRESS NOTE ---
DATE: 07/21/2019 INTERVAL HISTORY: Nursing reported a little bit of confusion yesterday afternoon. This morning, possibly some mild confusion but fully oriented and appears to understand questions for the most part. The patient initially stated she refused surgery and wanted to go home with hospice, but has now changed her mind and is amenable to surgery. No new complaints. No acute events overnight. REVIEW OF SYSTEMS: Twelve point review of systems negative except as per interval history. LABS: WBC 12.6, hemoglobin 11.6, hematocrit 39.3, platelets 306,000. Sodium 133, potassium 4.5, bicarb 38, glucose 194 to 270. TSH 3. VITALS: T-max 98.5 degrees, pulse is 100, respirations 20, blood pressure 146/80, O2 saturation 96% on 4 L by nasal cannula. PHYSICAL EXAMINATION: General: No acute distress. Vitals: As above. HEENT: Normocephalic, atraumatic. Moist mucous membranes. No cervical adenopathy. Cardiovascular: Minimally tachycardic but regular. No murmurs noted. Pulmonary: Moderately decreased air entry throughout but no wheezing. No rales or rhonchi. Abdomen: Soft, nontender, nondistended. Bowel sounds positive. Obese. Extremities: Peripheral pulses intact. Trace lower extremity edema. Left lower extremity in traction. Neurologic: Cranial nerves grossly intact. Mild global weakness. No clear focal deficits. Psychiatric: Essentially normal mood and affect. Appears to have somewhat poor recall and occasional mild confusion but answers all questions appropriately and appears to have reasonable grasp of her current situation. Skin: No new rashes or lesions identified. ASSESSMENT AND PLAN: 1. Left hip fracture. Initial plan for surgical repair, but then patient refused stage I to go home on hospice. Patient now changed her mind and does desire surgery. Local surgery likely to be performed by Dr. Juan in the morning. 2. COPD, chronic hypoxic respiratory failure. Patient on 4 L of oxygen at home which she has remained on here with stable respiratory status. No wheezing or other acute problem to suggest exacerbation. Some increased risk of having difficulty coming off the vent but appears to be stable with no further optimization to be done. We will go ahead and ask pulmonology for their opinion to make sure they do not have any other recommendations. 3. There was some question of pneumonia on her initial chest x-ray. She was placed on Rocephin and vancomycin. Chest CT obtained showing no evidence of infiltrate so likely does not appear to have pneumonia. Adjusting antibiotics to vancomycin alone for possible cellulitis. 4. Possible cellulitis, chronic venous stasis dermatitis. Patient with pretty extensive chronic venous stasis dermatitis. Some erythema and warmth of both anterior shins. Not entirely certain this really represents infection, but we will continue vancomycin for least another day or so and monitor. If there is no change, then likely just chronic venous stasis. We will likely deescalate antibiotics. If it appears to be improving, then we will continue treatment. 5. Hypertension. Acceptable control on current regimen monitor. 6. Diabetes. Glucose control remains suboptimal. We will add some additional Lantus and increase sliding scale to high dose and monitor. 7. Hypothyroidism continue Synthroid. 8. Morbid obesity. Patient counseled on diet and exercise. 9. Hyperkalemia, resolved. 10. Hyponatremia, minimal and improving. No need for acute intervention at this time. Likely chronic diastolic congestive heart failure. No sign of fluid overload at this time.
--- NOTE | 2019-07-21 15:01 | PULMONOLOGY CONSULTATION ---
DATE: 07/21/2019 REASON FOR CONSULTATION: The patient with chronic lung disease and hip fracture, please evaluate prior to surgery. HISTORY OF PRESENT ILLNESS: Ms. Wolff is a 69-year-old white female with a greater than 100-pack- year history for tobacco, morbid obesity and a BMI greater than 50, COPD, who has been on chronic oxygen therapy for several years and was placed on hospice several months ago. The patient was walking in her kitchen after midnight when she slipped and fell. She was evaluated in the emergency room and a chest x-ray revealed a proximal left femur fracture. The patient had initially decided not to proceed surgery, but after discussion with her family and reflexion, she decided to proceed with surgery. It is tentatively scheduled for tomorrow morning. PAST MEDICAL HISTORY: 1. Chronic hypoxemic respiratory failure due to COPD and morbid obesity. 2. COPD, degree of obstruction not currently available for review. 3. Morbid obesity with a BMI greater than 50. 4. History of heart failure. 5. History of hypothyroidism. 6. Anxiety/depressive disorder. 7. Uncontrolled diabetes mellitus. 8. Cholelithiasis. 9. Meniere disease. 10. Appendectomy. 11. Status post back surgery. 12. Status post hemorrhoidectomy. SOCIAL HISTORY: The patient has not smoked for at least 5 years. She previously reported smoking 3 to 5 packs per day. She is a . FAMILY HISTORY: Positive for Alzheimer disease, heart disease and colorectal cancer. REVIEW OF SYSTEMS: Notable for shortness of breath with any exertion, left-sided shoulder pain. Review of systems otherwise negative. PHYSICAL EXAMINATION: General: Reveals a morbidly obese white female on nasal cannula. She is in no acute distress. She does have pain with any movement in the bed. Vital signs: Blood pressure 157/79, heart rate 108, respiratory rate 18, oxygen saturation 95% on 4 L per nasal cannula. HEENT: Pupils are equal and reactive. Oropharynx is clear. Neck: Supple. Chest: Reveals diminished breath sounds bilaterally with prolonged expiratory phase. No wheezing or rhonchi. Cardiac: S1-S2. Abdomen: Obese and soft. Extremities: Reveal wrinkling of the skin consistent with recent diuresis. LABORATORIES: CT scan of the thorax yesterday revealed mild basilar atelectasis, but no evidence of acute pathology. Sodium 133, potassium 4.5, chloride 87, bicarbonate 38, BUN 14, creatinine 0.5, glucose 215. Hemoglobin A1c on 07/20/2019 elevated at 10.2. IMPRESSION: A 69-year-old with 1. Chronic obstructive pulmonary disease. 2. Chronic hypoxemic respiratory failure. 3. Chronic hypercapnic respiratory failure. 4. Morbid obesity with a body mass index greater than 55. 5. Poorly controlled diabetes mellitus. DISCUSSION: A 69-year-old with problems outlined above. The patient is on hospice for her multiple comorbid conditions. I suspect that if she could lose 100 pounds, her breathing would markedly improve and she would not require hospice, although it is not clear that this is a feasible pathway. The patient has a hip fracture an for palliative purposes, it would be of benefit to stabilize this fracture to decrease her pain. She will be at increased risk for respiratory compromise and due to her severe COPD, morbid obesity, and poorly controlled diabetes mellitus. She is aware of these issues and is willing to proceed. The patient has tried BiPAP in the past but it was not tolerated. I would like to have the respiratory therapist evaluate the patient and let her use the BiPAP this afternoon to see if she can be comfortable with the device when she is not in distress. RECOMMENDATIONS: 1. Obtain arterial blood gas for baseline pCO2 levels. 2. Anticipate surgical repair of the left hip fracture tomorrow. 3. Patient is at increased risk for postoperative complications as outlined above. Patient is aware and is willing to proceed. 4. Will attempt to condition the patient to the BiPAP today in anticipation of the need for BiPAP following any surgical intervention. 5. Long-term, patient would benefit from weight loss. She is aware and reports that she has lost greater than 100 pounds in the past. cc: Lb Fay MD
[2019-07-22] MEDS: MS CONTIN PO SCH ×3 (00:50→21:03)
[2019-07-22] MEDS: SEROQUEL PO PRN ×2 (00:50→21:03)
[2019-07-22] MEDS: DUONEB (A & A) INH SCH ×4 (04:42→22:52)
[2019-07-22] MEDS: MORPHINE IV PRN ×3 (05:56→12:19)
--- NOTE | 2019-07-22 07:01 | ORTHOPAEDICS PROGRESS NOTE ---
DATE: 07/22/2019 SUBJECTIVE: Patient is a 69-year-old female, who is 3 days status post a fall sustaining a left intertrochanteric femur fracture. Subtrochanteric extension she has decided to proceed with surgical management. The patient has undergone evaluation per Dr. Fay yesterday and was felt she would be at increased risk for respiratory compromise and due to her severe COPD, morbid obesity and poorly controlled diabetes. The patient understands and she wishes to proceed with surgery. Did speak with the family yesterday. We will plan on proceeding with surgery later today per Dr. Jensen. All questions were answered. She wished to proceed. cc: Jude Juan MD
[2019-07-22] MEDS: HUMALOG SUBQ SCH ×4 (07:30→21:04)
[2019-07-22] MEDS: LANTUS INSULIN SUBQ SCH ×2 (09:01→21:03)
[2019-07-22 09:48] LABS: BASO# 0.02 X1000 (0.0-0.2); BASO% 0.2 % (0.0-0.8); EOS# 0.09 X1000 (0.0-0.7); EOS% 0.9 % (0.0-10.0); HEMATOCRIT 39.2 % (37.0-47.0); HEMOGLOBIN 11.5 g/dL (12.0-16.0); IMM GRAN# 0.02 X1000 (0.0-0.04); IMM GRAN% 0.2 % (0.0-0.5); LYMPH% 16.4 % (20.5-51.1); MCH 27.4 PG (27-31); MCHC 29.3 g/dL (33-37); MCV 93.6 FL (81-99); MONO% 9.6 % (1.7-9.3); MPV 9.6 FL (7.4-10.4); NEUT# 7.54 X1000 (1.4-6.5); NEUT% 72.7 % (42.2-75.2); PLT 328 X1000 (130-400); RBC 4.19 XMIL (4.2-5.4); RDW 14.8 % (11.5-14.5); WBC 10.37 X1000 (4.8-10.8)
[2019-07-22 10:17] LABS: AGAP 11; BUN 12 mg/dL (8-22); CALCIUM 9.2 mg/dL (8.8-10.2); CHLORIDE 92 mmol/L (98-107); COSMO 283; CREATININE 0.5 mg/dL (0.5-0.9); ESTIMATED GFR > 60; GLUCOSE 193 mg/dL (70-104); POTASSIUM 3.7 mmol/L (3.5-5.1); SODIUM 139 mmol/L (136-145); TCO2 36 mmol/L (25-35)
--- NOTE | 2019-07-22 11:57 | PROGRESS NOTE ---
DATE: 07/22/2019 INTERVAL HISTORY: The patient currently n.p.o. for hip surgery later today. Complaining only of reasonably controlled left leg pain and dry mouth. No acute events overnight. No other new complaints. REVIEW OF SYSTEMS: Twelve point review of systems negative except as per interval history. LABORATORY DATA: WBC 10.3, hemoglobin 11.5, hematocrit 39.2, platelets 328,000. Sodium 139, potassium 3.7, bicarb 36, BUN 12, creatinine 0.5, glucose 193. OBJECTIVE: Vital Signs: T-max 98.5 degrees, pulse 73, respirations 20, blood pressure 142/70, O2 saturation 96% on 4 L by nasal cannula. General: No acute distress. HEENT: Normocephalic, atraumatic. Moist mucous membranes. No cervical adenopathy. Cardiovascular: Regular rate and rhythm. No murmurs noted. Pulmonary: Moderately decreased air entry throughout but no wheezing, rales, or rhonchi. Abdomen: Soft, nontender, nondistended. Bowel sounds positive. Obese. Extremities: Peripheral pulses intact. Trace lower extremity edema stable. Left lower extremity no longer in traction. Neurologic: Cranial nerves grossly intact. Mild global weakness, but no clear focal deficits. Psychiatric: Normal mood and affect. Still with some poor recall, possible mild confusion but answers essentially all questions coherently. Skin: No new rashes or lesions identified. ASSESSMENT AND PLAN: 1. Left hip fracture. The patient initially refused surgery, but has changed her mind. Patient n.p.o. for surgery with Dr. Juan later today. Anticipate discharge to rehab in a couple of days after surgery. 2. Chronic obstructive pulmonary disease, chronic hypoxic and hypercapnic respiratory failure. The patient on 4 L of oxygen at home. Has remained stable on that. Pulmonary on board and recommended baseline ABG which was obtained showing a CO2 of 69 with normal pH, which is likely her baseline. Will monitor closely in the postop period. 3. Cellulitis, chronic venous stasis dermatitis. The patient with fairly extensive chronic venous stasis dermatitis. On admission, had some increased erythema and warmth of both anterior shins as well as some honey-colored crusting. Does appear to be improving somewhat with antibiotics. We will continue vancomycin and monitor. 4. Hypertension. Acceptable control on current regimen. Monitor. 5. Diabetes. Glucose control somewhat improved but still not ideal. Given current NPO status, we will hold off on adjusting insulin, but if she remains significantly elevated, then may increase her Lantus a little more postop. 6. Hypothyroidism. Continue Synthroid. 7. Morbid obesity. Patient counseled on diet and exercise. 8. Hyperkalemia, resolved. 9. Hyponatremia, resolved.
[2019-07-22] MEDS: VANCOMYCIN 2 GM in NS 500 ML IV SCH (13:03)
[2019-07-22] MEDS ORDERED: FENTANYL ONE (13:50)
[2019-07-22] MEDS ORDERED: ZOFRAN ONE (13:50)
[2019-07-22] MEDS ORDERED: XYLOCAINE-MPF 2% ONE (13:50)
[2019-07-22] MEDS ORDERED: ROBINUL ONE (13:50)
[2019-07-22] MEDS ORDERED: DIPRIVAN 1% ONE ×2 (13:50→15:35)
[2019-07-22] MEDS ORDERED: DECADRON ONE (13:51)
[2019-07-22] MEDS ORDERED: NEO-SYNEPHRINE ONE (15:21)
[2019-07-22] MEDS ORDERED: SODIUM CHLORIDE 0.9% 10 ML ONE (15:21)
[2019-07-22] MEDS ORDERED: NS 1,000 ML ONE (16:25)
[2019-07-22] MEDS: MORPHINE ONE ×3 (17:16→17:24)
[2019-07-22] MEDS ORDERED: MORPHINE IV PRN (17:43)
[2019-07-22] MEDS ORDERED: MILK OF MAGNESIA PO PRN (17:43)
[2019-07-22] MEDS ORDERED: ZOFRAN IV PRN (17:43)
[2019-07-22] MEDS ORDERED: HALDOL IV PRN (17:45)
[2019-07-22] MEDS ORDERED: NS 1,000 ML IV SCH (17:45)
[2019-07-22] MEDS: ATIVAN PO PRN (18:29)
--- NOTE | 2019-07-22 19:11 | OPERATIVE NOTE ---
PROCEDURE DATE: 07/22/2019 PREOPERATIVE DIAGNOSIS: Left intertrochanteric and subtrochanteric femur fracture. POSTOPERATIVE DIAGNOSIS: Left intertrochanteric and subtrochanteric femur fracture. PROCEDURE: Left long trochanteric fixation nail placement, size 400, with a 110 mm helical blade and 48 and 58 mm distal locking screws. ANESTHESIA: Spinal. SURGEON: Gallo Jensen MD. [employer] INSTRUCTOR: PADMINI Dillard COMPLICATIONS: None. BLOOD LOSS: Minimal. DESCRIPTION OF PROCEDURE: Patient brought to the operative suite and placed in supine position. After successful administration of spinal anesthesia, patient was placed on the OSI table in the usual position for the left hip. The left hip was then reduced under fluoroscopy and then the left hip was prepped and draped in the usual sterile fashion. A longitudinal incision was made proximal to the tip of the greater trochanter. A guide pin was placed in the center of the femoral canal on AP and lateral images. It was reamed with the flexible cannulated reamer and then a ball-tipped guide pin was passed across the fracture site and buried in the distal metaphysis. Proper length of nail of about 400 mm was measured. It was reamed to 13 mm. The nail was then driven into place in the proper position, and then through a stab incision laterally using the proximal guide, a guide pin was placed in center of the femoral head on AP and lateral images was verified to be in good position. It was measured to 110 mm. It was reamed and then the helical blade was driven into place. It was locked proximally and then released a half turn to allow for compression. Traction was then released. The proximal guide was removed. Fluoroscopy showed excellent placement of hardware and excellent reduction of the fracture on AP and lateral images. Attention was directed to the distal locking screws. Through stab incisions laterally, using the perfect [place] technique, these were drilled and measured at 48 mm proximally and 58 mm distally. Once these were measured, they were driven into place and under fluoroscopy showed to be in excellent position. The wounds were copiously irrigated. Skin edges were approximated with 2-0 Vicryl, skin was closed with skin leon, and a sterile dressing was applied. The patient tolerated the procedure well without complications. At the end of the procedure, all counts were correct x2. The patient was transferred to the recovery room in stable condition. cc: Gallo Jensen MD
[2019-07-22] MEDS: COLACE PO SCH (21:02)
[2019-07-22] MEDS: TYLENOL PO SCH (21:03)
--- NOTE | 2019-07-22 21:37 | PULMONOLOGY PROGRESS NOTE ---
DATE: 07/22/2019 SUBJECTIVE: The patient is awake, alert, and conversant. She has had her left hip repair. She underwent a spinal anesthesia. She is arousable to alert. She reports good pain control. She denies shortness of breath. OBJECTIVE: Vital Signs: The patient is afebrile. BP 136/56, heart rate 105, respiratory rate 23, oxygen saturation 93%. HEENT: Pupils are equal and reactive. Oropharynx appears clear. Neck: Is supple. Chest: Reveals shallow breath sounds bilaterally with prolonged expiratory phase. Cardiac exam: S1, S2. Abdomen: Is soft. Extremities: Are without edema. Postsurgical dressings on the left hip. LABORATORIES: Arterial blood gas yesterday afternoon revealed pH 7.41, pCO2 of 69, PO2 of 65 on 4 L per nasal cannula. IMPRESSION: A 69-year-old with 1. Severe chronic obstructive pulmonary disease. 2. Morbid obesity with a body mass index of greater than 55. 3. Chronic hypoxemic respiratory failure. 4. Chronic hypercapnic respiratory failure. 5. Poorly controlled diabetes mellitus. 6. Status post repair of left hip fracture. DISCUSSION: A 69-year-old with problems outlined above. Clinically, she is doing well after her surgery. She is on nasal cannula. The patient was encouraged to wear BiPAP this evening and she has not yet decided if she will attempt to wear the BiPAP device. RECOMMENDATION: 1. Encourage BiPAP use and compliance. 2. Continue oxygen as needed. 3. Incentive spirometry. 4. Long-term, patient would benefit from significant weight loss. cc: Lb Fay MD
[2019-07-23] MEDS: MS CONTIN PO SCH ×3 (00:49→17:30)
[2019-07-23] MEDS: DUONEB (A & A) INH SCH ×4 (03:32→22:03)
[2019-07-23] MEDS: ZOFRAN IV PRN (03:42)
[2019-07-23] MEDS: MORPHINE IV PRN ×5 (03:42→21:10)
[2019-07-23] MEDS: LOVENOX SUBQ SCH (05:24)
[2019-07-23] MEDS: OXY IR PO PRN (05:24)
[2019-07-23] MEDS: TYLENOL PO SCH ×3 (05:28→21:10)
[2019-07-23] MEDS: HUMALOG SUBQ SCH ×4 (06:46→21:16)
[2019-07-23 07:01] LABS: BASO# 0.01 X1000 (0.0-0.2); BASO% 0.1 % (0.0-0.8); EOS# 0.01 X1000 (0.0-0.7); EOS% 0.1 % (0.0-10.0); HEMATOCRIT 35.9 % (37.0-47.0); HEMOGLOBIN 10.5 g/dL (12.0-16.0); IMM GRAN# 0.03 X1000 (0.0-0.04); IMM GRAN% 0.3 % (0.0-0.5); LYMPH# 1.04 X1000 (1.2-3.4); MCH 27.3 PG (27-31); MCHC 29.2 g/dL (33-37); MCV 93.2 FL (81-99); MONO# 0.77 X1000 (0.11-0.59); MONO% 7.4 % (1.7-9.3); MPV 9.6 FL (7.4-10.4); NEUT# 8.58 X1000 (1.4-6.5); NEUT% 82.1 % (42.2-75.2); PLT 340 X1000 (130-400); RBC 3.85 XMIL (4.2-5.4); RDW 14.7 % (11.5-14.5); WBC 10.44 X1000 (4.8-10.8)
[2019-07-23 07:37] LABS: AGAP 12; BUN 14 mg/dL (8-22); CALCIUM 8.5 mg/dL (8.8-10.2); CHLORIDE 96 mmol/L (98-107); COSMO 293; CREATININE 0.4 mg/dL (0.5-0.9); ESTIMATED GFR > 60; GLUCOSE 306 mg/dL (70-104); POTASSIUM 3.9 mmol/L (3.5-5.1); SODIUM 141 mmol/L (136-145); TCO2 33 mmol/L (25-35)
[2019-07-23] MEDS: ATIVAN PO PRN ×2 (09:02→13:47)
[2019-07-23] MEDS: FERROUS SULFATE PO SCH (09:03)
[2019-07-23] MEDS: LANTUS INSULIN SUBQ SCH ×2 (10:03→21:15)
[2019-07-23] MEDS ORDERED: BLISTEX MEDICATED BERRY LIP BALM TOP PRN (10:16)
--- NOTE | 2019-07-23 13:33 | ORTHOPAEDICS PROGRESS NOTE ---
DATE: 07/23/2019 SUBJECTIVE: Diogo Wolff is a 69-year-old female who is postoperative day 1 from a left TFN placement. She has no complaints. OBJECTIVE: She is a well-developed, well-nourished female. Her leg is neurovascularly intact. Her dressing is clean, dry, and intact. ASSESSMENT: Stable left TFN. PLAN: She will continue working with physical therapy. She will likely go to rehab later in the week. We will change her dressings tomorrow. cc: Gallo Jensen MD
[2019-07-23] MEDS: VANCOMYCIN 1,850 MG in NS 500 ML IV SCH (16:00)
--- NOTE | 2019-07-23 16:59 | PROGRESS NOTE ---
DATE: 07/23/2019 SUBJECTIVE: This morning, Ms. Wolff refers to be doing well except for some pain in the left thigh. OBJECTIVE: Vital signs: Blood pressure is 140/57, pulse of 100, respirations 22, temperature is 98.5 degrees. General: Ms. Wolff is a 69-year-old female. She is in bed. No distress. HEENT: Mucosa is pink and moist. Anicteric. Acyanotic. Neck: Supple. Chest: Good air entry bilaterally, there were no crepitations. No rhonchi. Cardiovascular: Regular rate and rhythm. Abdomen: Soft, nontender. Bowel sounds present. Extremities: No pedal edema. The left thigh is mildly more swollen from post surgical changes. Central Nervous System: Patient was awake, alert, and oriented. LABORATORY DATA: WBC is 10.44, hemoglobin is 10.5, platelet count of 340,000. Chemistry is also reviewed, unremarkable. Glucose is 287. CURRENT MEDICATIONS: The patient's current medications have also been reviewed. No changes. ASSESSMENT: 1. Status post mechanical fall resulting into a left hip fracture. Patient is status post long trochanteric fixation nail placement for the left intertrochanteric and subtrochanteric femur fracture. Today is day 1. Physical therapy has been consulted and orthopedics is on board. 2. Chronic obstructive pulmonary disease on home 2 oxygen. 3. Chronic venous stasis. 4. Hypertension. 5. Hypothyroidism. We will continue with the Synthroid. 6. Morbid obesity with BMI of 55.4 with suspected obstructive sleep apnea and obesity hypoventilation syndrome. 7. Uncontrolled diabetes mellitus with presenting A1c of 10.2. The patient is on insulin regimen. Disposition: Pending bed availability at [facility]. cc: Romie Nick MD
--- NOTE | 2019-07-23 20:07 | PULMONOLOGY PROGRESS NOTE ---
DATE: 07/23/2019 SUBJECTIVE: The patient is awake and alert. She reports she has not slept well through the evening. She did not wish to use the BiPAP device. She has no increased work of breathing. OBJECTIVE: Vital Signs: The patient has been afebrile for the last 24 hours. Blood pressure 140/57, heart rate 100, respiratory rate 22, oxygen saturation 95%. HEENT: Pupils are equal and reactive. Oropharynx is clear. Neck: Is supple. Chest: Reveals decreased breath sounds bilaterally. Cardiac exam: S1, S2. Abdomen: Is obese and soft. Extremities: Are without edema. She has postsurgical dressings over the left hip. IMPRESSION: A 69-year-old with 1. Severe chronic obstructive pulmonary disease. 2. Morbid obesity. 3. Chronic hypoxemic and chronic hypercapnic respiratory failure. 4. Status post hip fracture repair. 5. Poorly controlled diabetes mellitus. PLAN: 1. Continue oxygen. If she has distress, recommend BiPAP. 2. Continue oxygen for hypoxemic respiratory failure. 3. Continue incentive spirometry. 4. Encourage weight loss. 5. Recommend ongoing deep vein thrombosis prophylaxis given her bed-bound status. 6. Anticipate transfer to a rehab bed. cc: Lb Fay MD
[2019-07-23] MEDS: COLACE PO SCH (21:10)
[2019-07-23] MEDS: SEROQUEL PO PRN (21:10)
[2019-07-24] MEDS: MS CONTIN PO SCH ×3 (00:40→16:44)
[2019-07-24] MEDS: OXY IR PO PRN ×2 (02:34→21:26)
[2019-07-24] MEDS: VANCOMYCIN 1,850 MG in NS 500 ML IV SCH ×2 (02:34→13:06)
[2019-07-24] MEDS: MORPHINE IV PRN ×4 (02:35→19:41)
[2019-07-24] MEDS: DUONEB (A & A) INH SCH ×4 (03:19→21:20)
[2019-07-24] MEDS: LOVENOX SUBQ SCH (06:14)
[2019-07-24] MEDS: TYLENOL PO SCH ×2 (06:14→12:56)
[2019-07-24 06:53] LABS: BASO# 0.02 X1000 (0.0-0.2); BASO% 0.2 % (0.0-0.8)
[2019-07-24] MEDS: HUMALOG SUBQ SCH ×4 (06:58→21:34)
[2019-07-24 07:21] LABS: AGAP 11; BUN 11 mg/dL (8-22); CALCIUM 8.5 mg/dL (8.8-10.2); CHLORIDE 99 mmol/L (98-107); COSMO 289; CREATININE 0.4 mg/dL (0.5-0.9); ESTIMATED GFR > 60; GLUCOSE 284 mg/dL (70-104); POTASSIUM 3.7 mmol/L (3.5-5.1); SODIUM 140 mmol/L (136-145); TCO2 30 mmol/L (25-35)
[2019-07-24 07:22] LABS: EOS# 0.33 X1000 (0.0-0.7); EOS% 3.5 % (0.0-10.0); HEMOGLOBIN 10.2 g/dL (12.0-16.0); IMM GRAN# 0.04 X1000 (0.0-0.04); IMM GRAN% 0.4 % (0.0-0.5); LYMPH% 13.6 % (20.5-51.1); MCH 28.2 PG (27-31); MCV 93.9 FL (81-99); MONO# 0.75 X1000 (0.11-0.59); MONO% 7.9 % (1.7-9.3); MPV 9.4 FL (7.4-10.4); NEUT# 7.09 X1000 (1.4-6.5); NEUT% 74.4 % (42.2-75.2); PLT 321 X1000 (130-400); RBC 3.62 XMIL (4.2-5.4); WBC 9.53 X1000 (4.8-10.8)
[2019-07-24] MEDS: ATIVAN PO PRN ×2 (09:38→21:25)
[2019-07-24] MEDS: FERROUS SULFATE PO SCH (09:38)
[2019-07-24] MEDS: LANTUS INSULIN SUBQ SCH ×2 (09:40→21:25)
--- NOTE | 2019-07-24 11:01 | PROGRESS NOTE ---
DATE: 07/24/2019 SUBJECTIVE: This morning, Ms. Wolff refers to be doing well. She was on supplemental oxygen. OBJECTIVE: Vital Signs: Blood pressure is 134/52, pulse of 97, respirations 20, temperature 98.1 degrees. General: Ms. Wolff is a 69-year-old female, morbidly obese with a BMI of 54.4. She was in bed, did not seem to be in any distress. HEENT: Mucosa is pink and moist. Anicteric. Acyanotic. Neck: Supple. Chest: Air entry is bilaterally reduced, but there were no crackles. There were some distant end expiratory wheezing. Cardiovascular: Regular rate and rhythm. There is a pronounced A2 with a 2/6 murmur that radiates to the neck. GI: Abdomen is soft, nontender. Bowel sounds present. No hepatosplenomegaly. Extremities: No pedal edema. There are some chronic stasis changes on the lower extremities. The left thigh is minimally swollen from postsurgical changes. BLOOD BANK ATTENDANT: The patient is awake, alert, and oriented. LABORATORY DATA: Reviewed. The patient's CBC shows a mild normocytic anemia with normal WBC and platelet count. Chemistry is also reviewed and unremarkable, except for mildly elevated glucose of 284. MEDICATIONS: Current medications have all been reviewed. No changes. Have gone up on her insulin demands. ASSESSMENT: 1. Status post mechanical fall, resulting into a left intertrochanteric and subtrochanteric femur fracture. The patient is status post long trochanteric fixation nail placement. Today is day 1 postoperatively. We are pending Physical Therapy evaluation. 2. Chronic obstructive pulmonary disease, on home oxygen, stable. 3. Chronic venous stasis. Noted. 4. Hypothyroidism. Will continue with Synthroid. 5. Morbid obesity with body mass index of 54.4, with suspected obstructive sleep apnea and obesity hypoventilation syndrome. Noted. 6. Uncontrolled diabetes mellitus with presenting A1c of 10.2. The patient's insulin regimen has been uptitrated for better glycemic control. 7. Disposition. We are still pending rehab approval for Ms. Wolff. Social Work and Case Management are on board. cc: Romie Nick MD
[2019-07-24] MEDS: NORCO-10 PO PRN ×2 (11:25→23:47)
[2019-07-24] MEDS: COLACE PO SCH (21:25)
--- NOTE | 2019-07-24 21:28 | ORTHOPAEDICS PROGRESS NOTE ---
DATE: 07/24/2019 SUBJECTIVE: Dolores Wolff is a 69-year-old female postop day 2 from a left TFN. She has had no complaints. OBJECTIVE: She is a well-developed, well-nourished female. She is alert and cooperative with exam. Her wound is clean, dry, intact. Her leg is neurovascularly intact. Her calf is soft. She is ambulating some with physical therapy. ASSESSMENT: Stable left TFN. PLAN: She will likely go to rehab later in the week, probably or Monday. cc: Gallo Jensen MD
--- NOTE | 2019-07-24 21:57 | HISTORY AND PHYSICAL ---
CHIEF COMPLAINT: Fall with hip pain. HISTORY OF PRESENT ILLNESS: Ms. Wolff is a 69-year-old female who comes in after having a fall in her kitchen. She stated that she slipped off of her walker and fell on her left hip. She denies any other pain. The pain is increased with movement. Apparently, she took some oral morphine with no relief, was unable to bear weight and had trouble walking so she came into the emergency room. X-ray showed a displaced left intertrochanteric hip fracture. She will be admitted for further evaluation and treatment. 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 PREVIOUS SURGICAL HISTORY: Appendectomy, tubal ligation, heel spur surgery. She does have cholelithiasis but surgery has not been performed related to her weight and her COPD. SOCIAL HISTORY: Does not smoke currently. A 25 pack-year history of smoking. No alcohol. No illicit drugs. ALLERGIES: Azithromycin, hydromorphone, Levaquin. FAMILY HISTORY: Son had colorectal cancer, is . REVIEW OF SYSTEMS: She does endorse having some cough which is increased over baseline as well as left hip pain after a fall. A 14-point review was completed. All other systems were reviewed and found to be negative. PHYSICAL EXAMINATION: VITAL SIGNS: Temperature 98.3, pulse 105, respirations 24, blood pressure 141/58, oxygen saturation 93% on 4 L nasal cannula. GENERAL: Obese 69-year-old female lying in the ER stretcher, alert and oriented times 3. She is in no acute distress. HEENT: Head is atraumatic, normocephalic. Pupils equal, round, reactive to light. Extraocular eye movement is intact. Sclera is anicteric. Conjunctiva is pink. Oral mucosa is moist. NECK: Supple. No JVD. No thyromegaly. Trachea is midline. No cervical lymphadenopathy. CARDIAC: S1, S2 appreciated. No murmurs, gallops, rubs. LUNGS: Mild expiratory wheeze, otherwise clear to auscultation. No rhonchi. No rales. Symmetrical rise and fall with respirations. ABDOMEN: Soft, nondistended, nontender. Bowel sounds present all 4 quadrants, normoactive. No pulsatile mass. No organomegaly. EXTREMITIES: No clubbing, cyanosis or edema. Two-plus pedal pulses. Left lower extremity is neurovascularly intact. Patient can wiggle toes. MUSCULOSKELETAL: 4/5 strength in all extremities except for left lower extremity. Patient defers movement related to pain. NEUROLOGICAL: Alert and oriented times 3. No focal motor deficits. Otherwise nonfocal examination. LABORATORY DATA: WBC 18.12. Hemoglobin 12.7. Hematocrit 42.7. Platelet count 389. Sodium 131. Potassium 7. Carbon dioxide 89. BUN 17. Creatinine 0.8. Glucose 405. Urine: Greater than 1000 glucose, trace ketones. ASSESSMENT AND PLAN: 1. Left hip fracture. Consult Orthopedics. Morphine as needed for pain. Leslie's traction if recommended by Orthopedics. NPO after midnight. 2. Chronic obstructive pulmonary disease with mild exacerbation. DuoNebs. Patient's wheeze clears with cough. We will not give steroids at this time. We will consider antibiotic treatment if necessary. 3. Diabetes mellitus with hyperglycemia. Sliding scale insulin with fingerstick blood sugars. Check hemoglobin A1c. 4. Hyperkalemia. We will treat and recheck. Further recommendations per patient clinical course. Dictated by PADMINI Corral for Abhishek Asher MD I have performed a face to face diagnostic evaluation. Labs/Xrays- reviewed. Exam- Chest Clear, CV- regular, ABD- soft, Ext- Left hip tenderness. A/P- Left hip fracture- Admit, pain control, Orthopedics consult. Dr. Asher cc: PADMINI Corral MD [facility]
[2019-07-25] MEDS: TYLENOL PO SCH ×3 (00:40→12:03)
--- NOTE | 2019-07-25 01:11 | PULMONOLOGY PROGRESS NOTE ---
DATE: 07/24/2019 SUBJECTIVE: The patient is awake, alert, and conversant. She reports she has had some pain associated with physical therapy today, but otherwise is doing well. OBJECTIVE: Vital Signs: The patient has been afebrile for the last 24 hours. Blood pressure 151/59, heart rate 102, respiratory rate 22, oxygen saturation 100% on 4 L per nasal cannula. HEENT: Pupils are equal and reactive. Oropharynx is clear. Neck: Supple. Chest: Reveals prolonged expiratory phase without wheezing or rhonchi. Cardiac: S1, S2. Abdomen: Soft. Extremities: Reveal postsurgical dressings over the left hip. IMPRESSION: A 69-year-old with 1. Severe chronic obstructive pulmonary disease. 2. Morbid obesity. 3. Chronic hypoxemic and hypercapnic respiratory failure. 4. Status post hip fracture. 5. Poorly controlled diabetes. DISCUSSION: A 69-year-old with problems outlined above. She is doing well following her surgical procedure. PLAN: 1. Continue oxygen and cycle BiPAP if needed. 2. Continue incentive spirometry. 3. Encourage weight loss. 4. Continue deep vein thrombosis prophylaxis. 5. Anticipate transfer to a rehab bed. cc: Lb Fay MD
[2019-07-25] MEDS: MS CONTIN PO SCH ×2 (02:05→10:02)
[2019-07-25] MEDS: VANCOMYCIN 1,850 MG in NS 500 ML IV SCH (02:15)
[2019-07-25] MEDS: DUONEB (A & A) INH SCH ×2 (03:44→10:30)
[2019-07-25] MEDS: ATIVAN PO PRN ×2 (05:40→12:10)
[2019-07-25] MEDS: MORPHINE IV PRN (05:40)
[2019-07-25] MEDS: LOVENOX SUBQ SCH (05:53)
[2019-07-25] MEDS: HUMALOG SUBQ SCH ×2 (06:59→11:44)
[2019-07-25 07:31] LABS: BASO# 0.02 X1000 (0.0-0.2); BASO% 0.2 % (0.0-0.8); EOS# 0.25 X1000 (0.0-0.7); EOS% 2.8 % (0.0-10.0); HEMATOCRIT 34.8 % (37.0-47.0); HEMOGLOBIN 10.3 g/dL (12.0-16.0); IMM GRAN# 0.02 X1000 (0.0-0.04); IMM GRAN% 0.2 % (0.0-0.5); LYMPH# 1.11 X1000 (1.2-3.4); LYMPH% 12.6 % (20.5-51.1); MCH 27.9 PG (27-31); MCHC 29.6 g/dL (33-37); MCV 94.3 FL (81-99); MONO% 7.9 % (1.7-9.3); MPV 9.7 FL (7.4-10.4); NEUT# 6.73 X1000 (1.4-6.5); NEUT% 76.3 % (42.2-75.2); PLT 331 X1000 (130-400); RBC 3.69 XMIL (4.2-5.4); RDW 14.9 % (11.5-14.5); WBC 8.83 X1000 (4.8-10.8)
[2019-07-25 07:55] LABS: AGAP 10; BUN 10 mg/dL (8-22); CALCIUM 8.2 mg/dL (8.8-10.2); CHLORIDE 98 mmol/L (98-107); COSMO 290; CREATININE 0.5 mg/dL (0.5-0.9); ESTIMATED GFR > 60; GLUCOSE 313 mg/dL (70-104); POTASSIUM 3.7 mmol/L (3.5-5.1); SODIUM 140 mmol/L (136-145); TCO2 32 mmol/L (25-35)
[2019-07-25] MEDS: LANTUS INSULIN SUBQ SCH (10:02)
[2019-07-25] MEDS: FERROUS SULFATE PO SCH (10:02)
[2019-07-25] MEDS: NORCO-10 PO PRN (10:03)
[2019-07-25 11:40] VITALS: BP 143/60
--- NOTE | 2019-07-25 12:14 | DISCHARGE SUMMARY ---
ADMISSION DATE: 07/20/2019 DISCHARGE DATE: 07/25/2019 DISPOSITION: To [facility] bed rehab. FOLLOWUP: 1. Dr. Jensen. 2. Dr. Fay. 3. Dr. Pierre. CONSULTATION DURING THIS ADMISSION: 1. Orthopedics was consulted. Patient was seen by Dr. Juan, followed up by Dr. Jensen. 2. Pulmonary Medicine was consulted, patient was seen by Dr. Fay. INVASIVE PROCEDURES DONE DURING THIS ADMISSION: Left long trochanteric fixation nail placement was done by Dr. Jensen on 07/22/2019. ADMISSION DIAGNOSES: 1. Left hip fracture. 2. Chronic obstructive pulmonary disease with mild exacerbation. 3. Diabetes mellitus with hyperglycemia. DIAGNOSES AT THE TIME OF DISCHARGE: 1. Status post mechanical fall resulting into a left intertrochanteric and subtrochanteric femur fracture. The patient is status post fracture repair (long trochanteric fixation nail placement). 2. Chronic obstructive pulmonary disease, on home 2 oxygen, with mild exacerbation on presentation, improved. 3. Chronic venous stasis on the lower extremities. 4. Hypothyroidism. 5. Morbid obesity with body mass index of 55.4 associated with suspected obstructive sleep apnea and obesity hypoventilation syndrome. 6. Uncontrolled diabetes mellitus with presenting A1c of 10.2. DISCHARGE MEDICATIONS: 1. Cecil 10 mg q.6 p.r.n. 2. Aspirin 81 mg p.o. daily. 3. Phenergan 25 mg p.o. q.8 hourly. 4. Lasix 40 mg p.o. daily. 5. Furosemide 40 mg b.i.d. 6. Gabapentin 300 three times per day. 7. Januvia 50 mg p.o. q.a.m. 8. Aldactone 25 mg p.o. daily. 9. Lisinopril 10 mg b.i.d. 11. Colace 200 mg p.o. at bedtime. 12. Lorazepam 0.5 mg 4 times p.r.n. 13. Iron sulfate 325 p.o. daily. 14. Insulin glargine 45 units in the morning and 15 units in the evening. 15. Quetiapine 25 mg p.o. daily. 16. Acetaminophen. 17. Xarelto 10 mg p.o. daily. 18. Morphine sulfate 15 mg p.o. 3 times per day. PRESENTING COMPLAINT: Status post fall. HISTORY OF PRESENTING COMPLAINT: Ms. Wolff is a 69-year-old female who apparently fell in her kitchen, sustaining trauma to the left side. She could not immediately get up. She was brought into the emergency department where she was evaluated, was found to have a left intertrochanteric hip fracture. She was subsequently admitted for further medical care. [place] also has history of COPD, morbid obesity, diabetes on insulin, hypothyroidism, chronic anxiety and also chronic pain syndrome. HOSPITAL COURSE: Ms Wolff was admitted to the medical floor, was started on adequate pain management, hydration, was evaluated by Pulmonary Medicine for perioperative pulmonary evaluation. Surgery was successfully done by Dr. Jensen on 07/22/2019. Postoperatively, Ms. Wolff needed to use BiPAP on a few occasions, but for the most part, she was okay on a nasal cannula. She has also been evaluated by Physical Therapy on multiple occasions including yesterday. This morning, Ms. Wolff refers to be doing well. She denies any new complaint except for some pain in the left hip. She is fairly medically stable to be discharged to rehab to continue with her physical yarsani. At the time of the discharge, her current vitals, blood pressure is 150/58, pulse of 72, respirations is 18, temperature 98.5 degrees. Her physical exam is unchanged. She is morbidly obese, 55.5. Her lung exam sounds a lot better, no wheezing today. During the hospital course, Ms Wolff was found to have A1c of 10.2, which is suggestive of inadequate supplementation of insulin or noncompliance. She refers to be compliant with her medications, so we went up on the dose and she has been advised to follow up with her primary care doctor. Ms. Wolff is also on multiple pain medications and other psychotropic medication which raises a concern for polypharmacy. She has been advised to follow up with her primary care doctor and address this to know the need for each one of them and see if there is any room for adjustment and weaning off. All the discharge instructions have been discussed with her. She voices understanding. TIME SPENT FOR DISCHARGE: 35 minutes. cc: MD Jude Uribe MD Richard S. Sharp, MD James E. Boyle, MD Dr. Gillespie MTDD
--- NOTE | 2019-07-25 13:34 | ORTHOPAEDICS PROGRESS NOTE ---
DATE: 07/25/2019 SUBJECTIVE: Dolores Wolff is a 69-year-old female who is postoperative day 3 from a left TFN. She has no complaints. OBJECTIVE: She is a well-developed, well-nourished female. She is cooperative with the exam. Her wounds are clean, dry, intact. Her leg is neurovascularly intact. ASSESSMENT: Stable left TFN. PLAN: She will be transferred to rehab later today. She is weightbearing as tolerated. cc: Gallo Jensen MD
[2019-07-26] MEDS ORDERED: XARELTO PO SCH (06:00)
== END 2019-07-25 13:00 | disposition swing bed (61) | DRG 481 ==
LOC: SUPCPDRO → ED 01:32 → SUATTDRO 05:14 → 4N 05:14
PROVIDERS: ATTEND Internal Medicine